=== PATIENT | male | born 1940 | race Two or more races ===

== ENCOUNTER 2023-09-21 10:40 | Outpatient (OUT) | payer MEDICARE, SELFPAY ==
--- NOTE | 2023-09-21 11:51 | PM.PRESUREVA ---
History of Present Illness History of Present Illness Chief complaint: left trigger finger Narrative: Patient presents for preadmission testing accompanied by his . Please see HPI from Dr. Swanson dated 09/19/2023. Review of Systems ROS Narrative Please see ROS from Dr. Swanson dated 09/19/2023. [facility] Medical History (Updated 09/21/23 @ 11:31 by Alaina Norman NP) BPH (benign prostatic hyperplasia) ?N40.0 - Benign prostatic hyperplasia without lower urinary tract symptoms (ICD-10) GERD (gastroesophageal reflux disease) ?K21.9 - Gastro-esophageal reflux disease without esophagitis (ICD-10) Hiccups ?R06.6 - Hiccough (ICD-10) High cholesterol ?E78.00 - Pure hypercholesterolemia, unspecified (ICD-10) Hypertension ?I10 - Essential (primary) hypertension (ICD-10) Postoperative nausea and vomiting ?R11.2 - Nausea with vomiting, unspecified (ICD-10) ?Z98.890 - Other specified postprocedural states (ICD-10) Trigger finger ?M65.30 - Trigger finger, unspecified finger (ICD-10) Surgical History (Updated 09/21/23 @ 11:31 by Alaina Norman NP) History of tonsillectomy ?Z90.89 - Acquired absence of other organs (ICD-10) History of cataract extraction ?Z98.49 - Cataract extraction status, unspecified eye (ICD-10) History of colonoscopy ?Z98.890 - Other specified postprocedural states (ICD-10) History of spinal surgery ?Z98.890 - Other specified postprocedural states (ICD-10) History of hernia repair ?Z98.890 - Other specified postprocedural states (ICD-10) ?Z87.19 - Personal history of other diseases of the digestive system (ICD-10) History of arthroscopy of shoulder ?Z98.890 - Other specified postprocedural states (ICD-10) S/P trigger finger release ?Z98.890 - Other specified postprocedural states (ICD-10) Family History (Updated 09/21/23 @ 11:31 by Alaina Norman NP) Other Family history of heart disease Social History (Updated 09/21/23 @ 11:26 by Alaina Norman NP) Within the past year, how often did you have a drink containing alcohol: monthly or less Smoking status: Former smoker Highest level of school completed/degree received: high school graduate Meds Home Medications and Allergies Home Medications Medication Instructions Recorded Confirmed Type aspirin 81 mg tablet,delayed 81 mg PO DAILY 09/21/23 09/21/23 History release (Adult Aspirin Regimen) dicyclomine 10 mg capsule 10 mg PO DAILY PRN hiccups 09/21/23 09/21/23 History fluticasone propionate 50 2 spray intranasal Q12H 09/21/23 09/21/23 History mcg/actuation nasal spray,suspension latanoprost 0.005 % eye drops 1 drp ophthalmic (eye) DAILY 09/21/23 09/21/23 History lisinopril 20 mg tablet 20 mg PO DAILY 09/21/23 09/21/23 History omeprazole 40 mg capsule,delayed 40 mg PO DAILY 09/21/23 09/21/23 History release pravastatin 40 mg tablet 40 mg PO DAILY 09/21/23 09/21/23 History tamsulosin 0.4 mg capsule 0.4 mg PO DAILY 09/21/23 09/21/23 History timolol maleate 0.25 % eye drops 1 drp ophthalmic (eye) DAILY 09/21/23 09/21/23 History Allergies Allergy/AdvReac Type Severity Reaction Status Date / Time gabapentin Allergy lightheaded Verified 09/21/23 11:23 tramadol Allergy Verified 09/21/23 11:23 Exam Narrative Exam Narrative: Constitutional: Awake, alert, comfortable, well-appearing, nontoxic, interactive, vital signs as charted Head: Normocephalic, atraumatic Neck: Supple, normal appearance, normal range of motion, no meningeal signs, no lymphadenopathy Respiratory: No respiratory distress, breath sounds clear Cardiovascular: Regular rate and rhythm, strong and regular heart tones Neuro: No neurological deficits, normal sensation Psychiatric: Oriented ?3, normal affect Assessment and Plan Assessment and Plan (1) Trigger finger: Plan Left long trigger finger release scheduled with Dr. Swanson 09/25/2023.
== END 2023-09-21 10:41 | disposition home or self-care (01) ==
LOC: PST 10:46
PROVIDERS: Visit Provider Orthopaedic Surgery
DX: Z01.818 Encounter for other preprocedural examination (principal); M65.332 Trigger finger, left middle finger
CPT/HCPCS: G0463

== ENCOUNTER 2023-09-25 11:56 | Day surgery (SDC) | payer MEDICARE, SELFPAY ==
[2023-09-21 11:47] VITALS: BP 135/69; PULSE 60; RESP 14; TEMP 36.2; O2SAT 96; BMI 29.5
[2023-09-25 12:00] VITALS: BP 130/73; PULSE 66; RESP 16; TEMP 36.4; O2SAT 96; BMI 29.6
--- OUTSIDE RECORDS SUMMARY | 2023-09-25 12:00 | XMS_ITS | CCD ---
Author Name Unknown Address [address] [place] [address] Organization [facility] Care Team Providers Care Carding Machine Feeder Name Role Phone Miguel Antonio Primary Care Physician Unavail able Miguel Antonio Unavailable Unavailable Unavailable Primary Care Provider Unavailkemal e AGUILAR, CHANTEL Referring Unavailable AKHIL AWAN Attending Unavailable AKHIL AWAN Admitting Unavailable AKHIL AWAN Attending Unavailable AWANAKHIL ROWE Admitting Unavailable AGUILAR, CHANTEL Referring Unavailable AHKIL AWAN Admitting Unavailable AKHIL AWAN Attending Unavailable Miguel Antonio Primary Care Physician Unavail able Miguel Antonio Unavailable Unavailable Miguel Antonio Primary Care Physician Unavail able Chanell BOARD MIXER TENDER-VESSEL ENGINEER, Nelson Jones Primary Care Provider Jan MONTE, Bee Joseph Attending Unavailable Sobecki WALL MAN, Nelson A Primary Care Unavailable Sobecki WALL MAN, Nelson A Consulting Unavailable Sobecki WALL MAN, Nleson A Primary Care Unavailable Isac Garrett MD Attending Unavail able Ken Cespedes III, MD Attending U navailable Sobecki WALL MAN, Nelson A Primary Care Unavailable Audra Lizarraga PA-C Attending Unav ailable Sobecki WALL MAN, Nelson A Primary Care Unavailable Sobecki WALL MAN, Nelson A Primary Care Unavailable Isac Garrett MD Attending Unavail able Ken Cespedes III, MD Attending U navailable Sobecki WALL MAN, Nelson A Primary Care Unavailable Ken Cespedes III, MD Attending U navailable Sobecki WALL MAN, Nelson A Primary Care Unavailable Sobecki WALL MAN, Nelson A Primary Care Unavailable DeVaul BOARD MIXER TENDER-VESSEL ENGINEER, Matilda Smith Attending Unav ailable Sobecki WALL MAN, Nelson A Referring Unavailable Sobecki WALL MAN, Nelson A Primary Care Unavailable Gerry MONTE, Isac Bales Attending Unavail able Ban SAINI, Miguel Velázquez Attending Unavaila brandyn Cespedes III, MD, Ken Kurtz Referring U navailable Sobecki WALL MAN, Nelson A Primary Care Unavailable Ickes PA-C, Audra Solis Attending Unav ailable Sobecki WALL MAN, Nelson A Primary Care Unavailable Sobecki WALL MAN, Nelson A Primary Care Unavailable DeVaul BOARD MIXER TENDER-VESSEL ENGINEER, Matilda Smith Attending Unav ailable Sobecki WALL MAN, Nelson A Primary Care Unavailable DeVaul BOARD MIXER TENDER-VESSEL ENGINEER, Matilda Smith Attending Unav ailable DeVaul BOARD MIXER TENDER-VESSEL ENGINEER, Matilda Smith Attending Unav ailable Sobecki WALL MAN, Nelson A Primary Care Unavailable Sobecki WALL MAN, Nelson A Primary Care Unavailable DeVaul BOARD MIXER TENDER-VESSEL ENGINEER, Matilda Smith Attending Unav ailable Ickes PA-C, Audra Solis Attending Unav ailable Sobecki WALL MAN, Nelson A Primary Care Unavailable Ickes PA-C, Audra Solis Attending Unav ailable Sobecki WALL MAN, Nelson A Primary Care Unavailable Sobecki WALL MAN, Nelson A Primary Care Unavailable Ickes PA-C, Audra Solis Attending Unav ailable Ickes PA-C, Audra Solis Attending Unav ailable Sobecki WALL MAN, Nelson A Primary Care Unavailable Ickes PA-C, Audra Solis Attending Unav ailable Verhoff PA-C, Therese Perez Referring Unava ilable Sobecki WALL MAN, Nelson A Primary Care Unavailable CATHERINE FIGUEROA Attending Unavailable SOBECKI, NELSON A Referring Unavailable SOBECKI, NELSON A Primary Care Unavailable Allergies Allergy Classification Reported Allergen(s) Allergy Type Date of Onset Reaction(s) Facility (5 sources) gabapentin; Translations: [GABAPENTIN] Drug Allergy 8 Dizziness or Vertigo, Dizziness [facility] (6 sources) traMADol; Translations: [traMADol] Drug Allergy 0 Dizziness or Vertigo, Dizziness [facility] Work Phone: (1 source) gabapentin; Translations: [Neurontin] Drug Allergy [facility] (1 source) tiZANidine; Translations: [Zanaflex] Drug Allergy [facility] Medications Current Medications Medication Drug Class(es) Dates Sig (Normalized) Sig (Original) acetaminophen 500 mg / diphenhydrAMINE hydrochloride 25 mg oral tablet (4 sources) Histamine-1 Receptor Antagonist take 1 tablet by mouth once daily as needed for sleep diphenhydrAMINE- acetaminophen (TYLENOL PM) 25-500 mg tablet Take 1 tablet by mouth nightly as needed for sleep. 0 Active aspirin 81 mg delayed release oral tablet (9 sources) Platelet Aggregation Inhibitor, Nonsteroidal Anti-inflammatory Drug End: 12-03-2021 aspirin 81 mg tablet Adult Aspirin Low Strength 81 MG TBDP 1 tablet daily Refills: 0 Active 0 Active calcium chloride 0.0014 meq/ml / potassium chloride 0.004 meq/ml / sodium chloride 0.103 meq/ml / sodium lactate 0.028 meq/ml injectable solution (2 sources) Start: 12-17-2021 lactated ringers infusion Start: 12-03-2021 lactated ringe rs infusion igrgcci-gshyorpch-iupq 333-133-5 mg tablet (2 sources) calcium-magnesiu m-zinc 333-133-5 mg tablet Calcium/Magnesium/Zinc TABS TAKE 1 TABLET DAILY. Refills: 0 Active 0 Active dicyclomine hydrochloride 10 mg oral capsule (2 sources) Anticholinergic Star t: 07-14 23 take 1 capsule by mouth four times daily before mealtime dicyclomine (BENTYL) 10 mg capsule Take 1 capsule (10 mg total) by mouth 4 (four) times a day before meals and nightly. 0 08/10/2023 Active Flaxseed Oil OIL (2 sources) take 1 capsule by mouth once daily Flaxseed Oil OIL Flaxseed Oil 1200 MG Oral Capsule 1 daily Refills: 0 Active 0 Active flaxseed oil oil (2 sources) take 1 capsule by mouth once daily flaxseed oil oil Flaxseed Oil 1200 MG Oral Capsule 1 daily Refills: 0 Active 0 Active fluticasone propionate 0.05 mg/actuat metered dose nasal spray (10 sources) Corticosteroid Star t: 03-11 23 take 2 spray(s) nasal route in the morning fluticasone propionate (FLONASE) 50 mcg/actuation nasal spray Indications: Chronic sinusitis , Nasal congestion , PND (post-nasal drip) , Throat clearing Administer 2 sprays into each nostril in the morning. 16 g 11 03/21/2023 Active Start: 08-27-2020 fluticasone (F LONASE) 50 MCG/ACT nasal spray USE 2 SQUIRTS IN each nostril every other day. 0 08/27/2020 Active End: 08-11-2017 take 2 spray(s) nasal route once daily fluticasone 50 mcg/actuation nasal spray,suspension 08/11/2017 inhale 2 sprays (100 mcg) in each nostril by intranasal route once daily latanoprost 0.05 mg/ml ophthalmic solution (9 sources) Prostaglandin Analog Start: 09-12-2023 take 1 drop(s) into the eye(s) once daily in the evening latanoprost (XALATAN) 0.005 % ophthalmic solution Indications: Low-tension glaucoma of both eyes, mild stage INSTILL ONE DROP TO BOTH EYE EVERY EVENING 2.5 mL 6 09/12/2023 Active Start: 08-12-2022 End: 09-12-2023 take 1 drop(s) into the eye(s) once daily latanoprost (XALATAN) 0.005 % ophthalmic solution Indications: Low-tension glaucoma of both eyes, mild stage Administer 1 drop to both eyes nightly. 2.5 mL 6 08/12/2022 09/12/2023 Discontinued latanoprost 0.00 5 % ophthalmic (eye) drops lisinopril 20 mg oral tablet (16 sources) Angiotensin Converting Enzyme Inhibitor Start: 11-16-2020 take 1 tablet by mouth once daily in the morning lisinopriL (PRINIVIL,ZESTRIL) 20 mg tablet Indications: Essential hypertension TAKE ONE TABLET BY MOUTH EVERY MORNING 90 tablet 1 07/24/2023 Active End: 03-20-2014 take 1 tablet by mouth once daily lisinopril 5 mg oral tablet 03/20/2014 take 1 tablet by oral route daily omeprazole 40 mg delayed release oral capsule (10 sources) Proton Pump Inhibitor Start: 04-17-2023 take 1 capsule by mouth once daily in the morning omeprazole (PriLOSEC) 40 mg capsule Indications: Gastroesophageal reflux disease without esophagitis TAKE ONE CAPSULE BY MOUTH EVERY MORNING 90 capsule 3 04/17/2023 Active Start: 11-02-2020 take 1 capsule by mo uth once daily omeprazole (PRILOSEC) 40 MG delayed release capsule Take 40 mg by mouth daily 0 11/02/2020 Active take 1 capsule by mo uth once daily before mealtime omeprazole 20 mg oral capsule,delayed release(DR/EC) take 1 capsule (20 mg) by oral route once daily before a meal pravastatin sodium 40 mg oral tablet (10 sources) HMG-CoA Reductase Inhibitor Start: 07-04-2023 take 1 tablet by mouth in the morning pravastatin (PRAVACHOL) 40 mg tablet Indications: Hyperlipidemia, unspecified hyperlipidemia type Take 1 tablet (40 mg total) by mouth in the morning. 90 tablet 3 07/04/2023 Active Start: 06-30-2020 take 1 tablet by jaden th once daily pravastatin (PRAVACHOL) 20 MG tablet Take 20 mg by mouth daily 0 06/30/2020 Active 5 ml sodium chloride 9 mg/ml injection (6 sources) Start: 12-17-2021 0.9 % sodium c hloride infusion Start: 12-17-2021 sodium chlorid e flush 0.9 % injection 5-40 mL Start: 12-03-2021 0.9 % sodium c hloride infusion Start: 12-03-2021 sodium chlorid e flush 0.9 % injection 5-40 mL tamsulosin hydrochloride 0.4 mg oral capsule (10 sources) alpha-Adrenergic Ronda Start: 11-16-2020 take 1 capsule by mouth once daily tamsulosin (FLOMAX) 0.4 mg capsule TAKE ONE CAPSULE BY MOUTH ONCE NIGHTLY 90 capsule 0 07/22/2023 Active timolol 2.5 mg/ml ophthalmic solution (2 sources) beta-Adrenergic Ronda Start: 08-17-2023 take 1 drop(s) into the eye(s) twice daily at bedtime timolol (TIMOPTIC) 0.25 % ophthalmic solution Indications: Low-tension glaucoma of both eyes, mild stage INSTILL ONE DROP TO BOTH EYES TWICE A DAY (MORNING AND BEDTIME) 5 mL 6 08/17/2023 Active UNABLE TO FIND (2 sources) take 120 mg by mouth in the morning UNABLE TO FIND Take 120 mg by mouth in the morning. Gingko biloba for memory. 0 Active Completed/Discontinued Medications Medication Drug Class(es) Dates Sig (Normalized) Sig (Original) acetaminophen 325 mg / HYDROcodone bitartrate 5 mg oral tablet (2 sources) Opioid Agonist Start: 12-03-2021 End: 12-10-2021 take 1 tablet by mouth every six hours as needed for pain HYDROcodone-aceta minophen (NORCO) 5-325 MG per tablet Indications: S/P endoscopic carpal tunnel release Take 1 tablet by mouth every 6 hours as needed for Pain for up to 7 days. 8 tablet 0 12/03/2021 12/10/2021 alendronic acid 70 mg oral tablet (6 sources) Bisphosphonate End: 02-14-2014 take 1 tablet by mouth every week in the morning alendronate 70 mg oral tablet 02/14/2014 take 1 tablet (70 mg) by oral route once weekly in the morning, at least 30 min before first food, beverage, or medication of day allopurinol 100 mg oral tablet (6 sources) Xanthine Oxidase Inhibitor End: 02-14-2014 take 1 tablet by mouth once daily allopurinol 100 mg oral tablet 02/14/2014 take 1 tablet (100 mg) by oral route once daily baclofen 10 mg oral tablet (6 sources) gamma-Aminobutyric Acid-ergic Agonist End: 08-11-2017 take 1 tablet by mouth at bedtime baclofen 10 mg oral tablet 08/11/2017 take 1 tablet (10 mg) by oral route at bedtime zchhpdv-jejizimss-t inc 333-133-5 mg oral tablet (5 sources) Start: 02-14-2014 take 1 tablet by mouth once daily calcium-magnesium -zinc 333-133-5 mg oral tablet 02/14/2014 take 1 tablet by oral route daily Start: 02-14-2014 take 1 tablet by jaden th once daily tmhxjhi-olfzyibzc-tiqd 333-133-5 mg oral tablet 02/14/2014 take 1 tablet by oral route daily xcvwmvd-hplxnmcrb-umfq 333-133-5 mg oral tablet (1 source) Start: 02-14-2014 take 1 tablet by mouth once daily oiqlngd-avvixpflw-jaoi 333-133-5 mg oral tablet 02/14/2014 take 1 tablet by oral route daily ceFAZolin 2000 mg injection (2 sources) Cephalosporin Antibacterial Start: 12-17-2021 End: 12-17-2021 ceFAZolin (ANCEF) 2000 mg in dextrose 3 % 50 mL IVPB (duplex) Start: 12-03-2021 End: 12-03-2021 ceFAZolin (ANCEF) 2000 mg in dextrose 3 % 50 mL IVPB (duplex) desonide 0.5 mg/ml topical lotion (6 sources) Corticosteroid Start: 08-18-2014 End: 08-11-2017 DesOwen 0.05 % topical lotion 08/18/2014 08/11/2017 apply twice weekly as needed to affected armpits/groin diclofenac sodium 15 mg/ml topical solution (6 sources) Nonsteroidal Anti-inflammatory Drug End: 08-11-2017 apply 40 drop(s) topically four times daily Pennsaid 1.5 % topical drops 08/11/2017 apply 40 drops to the right knee by topical route 4 times per day diphenhydrAMINE citrate 38 mg / ibuprofen 200 mg oral tablet (6 sources) Histamine-1 Receptor Antagonist, Nonsteroidal Anti-inflammatory Drug take 2 tablets by mouth once daily in the evening Advil PM 200-38 mg oral tablet take 2 tablets by oral route daily FIBROMYALGIA RELIEF (6 sources) End: 02-25-2020 take 1 capsule by mouth twice daily FIBROMYALGIA RELIEF 02/25/2020 1 CAP BY MOUTH BID take 1 capsule by mouth twice da sae FIBROMYALGIA RELIEF 1 CAP BY MOUTH BID gabapentin 100 mg oral capsule (12 sources) Anti-epileptic Agent End: 08-11-2017 take 1 capsule by mouth three times daily gabapentin 100 mg oral capsule 02/14/2014 take 1 capsule by oral route 3 times a day jayme root 250 mg oral capsule (6 sources) Start: 02-14-2014 End: 08-11-2017 take 1 capsule by mouth twice daily Jayme Extract 250 mg oral capsule 02/14/2014 08/11/2017 take 1 capsule by oral route 2 times a day linseed oil 1000 mg oral capsule (6 sources) Start: 02-14-2014 take 1 capsule by mouth once daily flaxseed oil 1,000 mg oral capsule 02/14/2014 take 1 capsule by oral route daily Miconazole (6 sources) Azole Antifungal End: 08-11-2017 Zeasorb Topical Powder 08/11/2017 use as directed naproxen 500 mg oral tablet (6 sources) Nonsteroidal Anti-inflammatory Drug End: 08-11-2017 take 1 tablet by mouth twice daily at mealtime naproxen 500 mg oral tablet 08/11/2017 take 1 tablet (500 mg) by oral route 2 times per day with food pimecrolimus 10 mg/ml topical cream (1 source) Calcineurin Inhibitor Immunosuppressant Start: 02-22-2023 Elidel 1 % topical cream 02/22/2023 apply BID to affected areas tiZANidine 4 mg oral capsule (6 sources) Central alpha-2 Adrenergic Agonist End: 01-29-2016 take 2 capsules by mouth once daily at bedtime tizanidine 4 mg oral capsule 01/29/2016 take 2 capsules by oral route once a day (at bedtime) triamcinolone acetonide 1 mg/ml topical cream (5 sources) Corticosteroid Start: 02-25-2020 triamcinolone acetonide 0.1 % topical cream 02/25/2020 apply QD to affected areas up to 2 weeks on/one week off prn only. Dispense 80 gm tube Problems Active Problems Problem Classification Problem Date Documented Date Episodic/Chronic Cancer of bronchus; lung (12 sources) Malignant neoplasm of bronchus and lung, unspecified; Translations: [Adenocarcinoma of lung] Chronic Cataract (4 sources) After-cataract of bilateral eyes; Translations: [Other secondary cataract, bilateral] Onset: 09-22-2023 09-21-2023 Chronic Chronic kidney disease (2 sources) Chronic kidney disease stage 3; Translations: [Chronic kidney disease, stage III (moderate)] Onset: 02-23-2017 02-23-2017 Chronic Diverticulosis and diverticulitis (2 sources) Diverticulosis of colon without diverticulitis; Translations: [Diverticulosis of large intestine without perforation or abscess without bleeding] Onset: 06-25-2017 06-25-2017 Chronic Esophageal disorders (2 sources) Gastroesophageal reflux disease; Translations: [Gastro-esophageal reflux disease without esophagitis] Onset: 01-16-2019 01-16-2019 Chronic Essential hypertension (20 sources) Unspecified essential hypertension; Translations: [Hypertensive disorder] Onset: 03-10-2014 02-23-2017 Chronic Glaucoma (3 sources) Bilateral low tension glaucoma of eyes; Translations: [Low-tension glaucoma, bilateral, mild stage] Onset: 09-22-2023 09-06-2023 Chronic Hyperplasia of prostate (2 sources) Nocturia due to benign prostatic hypertrophy; Translations: [Benign prostatic hyperplasia with lower urinary tract symptoms] Onset: 08-10-2017 11-30-2017 Chronic Melanomas of skin (12 sources) Malignant melanoma of skin; Translations: [Malignant melanoma of skin] Onset: 09-11-2009 Chronic Osteoarthritis (4 sources) Osteoarthritis of right knee joint; Translations: [Unilateral primary osteoarthritis, right knee] Onset: 07-04-2019 07-04-2019 Chronic Other connective tissue disease (6 sources) Fibromyositis; Translations: [Myalgia and myositis, unspecified] Episodic Other connective tissue disease (4 sources) Fibromyalgia Episodic Other inflammatory condition of skin (6 sources) Seborrheic dermatitis; Translations: [Seborrheic dermatitis, unspecified] Episodic Other inflammatory condition of skin (6 sources) Itching of skin; Translations: [Unspecified pruritic disorder] Episodic Other inflammatory condition of skin (4 sources) Pruritus, unspecified Episodic Other inflammatory condition of skin (5 sources) Seborrheic dermatitis, unspecified Onset: 02-22-2023 Episodic Other nervous system disorders (6 sources) Facial palsy; Translations: [Bradshaw's palsy] Episodic Other nervous system disorders (4 sources) Bradshaw's palsy Episodic Other nervous system disorders (1 source) Other acute postprocedural pain; Translations: [Other acute postprocedural pain] Onset: 08-12-2022 Episodic Other non-epithelial cancer of skin (20 sources) Personal history of other malignant neoplasm of skin; Translations: [Personal history of other malignant neoplasm of skin] Onset: 02-14-2014 Episodic Other skin disorders (6 sources) Actinic keratosis; Translations: [Actinic keratosis] Episodic Other skin disorders (1 source) Sebaceous cyst Onset: 02-25-2020 Episodic Other skin disorders (20 sources) Actinic keratosis Onset: 01-29-2016 Episodic Retinal detachments; defects; vascular occlusion; and retinopathy (2 sources) Epiretinal membrane of right eye; Translations: [Puckering of macula, right eye] Onset: 09-22-2023 09-22-2023 Chronic Spondylosis; intervertebral disc disorders; other back problems (8 sources) Degeneration of cervical intervertebral disc; Translations: [Other cervical disc degeneration, unspecified cervical region] Onset: 07-10-2017 07-10-2017 Chronic Unclassified (1 source) Blurred Vision Onset: 09-22-2023 Past or Other Problems Problem Classification Problem Date Documented Da te Episodic/Chronic Allergic reactions (18 sources) Contact dermatitis and other eczema, unspecified cause; Translations: [Dermatitis, unspecified] Onset: 02-25-2020 Episodic Coagulation and hemorrhagic disorders (2 sources) Platelet count below reference range; Translations: [Thrombocytopenia, unspecified] Onset: 02-23-2017 Resolved: 08-19-2019 08-19-2019 Chronic Conditions associated with dizziness or vertigo (6 sources) Dizziness and giddiness Onset: 03-20-2014 Episodic Disorders of lipid metabolism (20 sources) Other and unspecified hyperlipidemia; Translations: [Hyperlipidemia] Onset: 03-20-2014 Resolved: 07-07-2017 07-07-2017 Chronic Fever of unknown origin (3 sources) Fever with chills Onset: 03-20-2014 Episodic Genitourinary symptoms and ill-defined conditions (2 sources) Disorder of the urinary system; Translations: [Disorder of urinary system, unspecified] Onset: 11-26-2020 05-05-2022 Episodic Melanomas of skin (20 sources) Personal history of malignant melanoma of skin; Translations: [Personal history of malignant melanoma of skin] Onset: 02-14-2014 Episodic Mood disorders (2 sources) Mood disorders Onset: 08-17-2023 08-17-2023 Neoplasms of unspecified nature or uncertain behavior (20 sources) Neoplasm of uncertain behavior of skin; Translations: [Neoplasm of uncertain behavior of skin] Onset: 02-08-2017 Episodic Other aftercare (2 sources) Encounter for removal of sutures Onset: 08-18-2017 Episodic Other aftercare (4 sources) Encounter for removal of sutures Onset: 08-18-2017 Episodic Other and unspecified benign neoplasm (2 sources) Polyp of cecum; Translations: [Polyp of colon] Onset: 06-25-2017 06-25-2017 Episodic Other and unspecified benign neoplasm (2 sources) Tubular adenoma ; Translations: [Benign neoplasm, unspecified site] Onset: 06-25-2017 06-25-2017 Episodic Other connective tissue disease (8 sources) Myalgia and myositis, unspecified Onset: 03-20-2014 Episodic Other connective tissue disease (2 sources) Primary fibromyalgia syndrome; Translations: [Fibromyalgia] Onset: 07-07-2017 07-07-2017 Episodic Other diseases of kidney and ureters (2 sources) Cyst of kidney; Translations: [Cyst of kidney, acquired] Onset: 08-30-2017 08-30-2017 Episodic Other ear and sense organ disorders (2 sources) Bilateral tinnitus; Translations: [Tinnitus, bilateral] Onset: 01-31-2018 01-31-2018 Episodic Other inflammatory condition of skin (14 sources) Unspecified pruritic disorder Onset: 03-20-2014 Episodic Other inflammatory condition of skin (8 sources) Seborrheic dermatitis, unspecified Onset: 03-20-2014 Episodic Other inflammatory condition of skin (1 source) Seborrheic dermatitis, unspecified Other lower respiratory disease (2 sources) Rib pain; Translations: [Pleurodynia] Onset: 08-01-2017 08-01-2017 Episodic Other lower respiratory disease (2 sources) Cough; Translations: [Cough] Onset: 07-07-2017 Resolved: 06-22-2021 06-22-2021 Episodic Other male genital disorders (2 sources) Hemospermia; Translations: [Hematospermia] Onset: 11-26-2020 12-24-2020 Episodic Other nervous system disorders (8 sources) Bradshaw's palsy Onset: 03-20-2014 Episodic Other screening for suspected conditions (not mental disorders or infectious disease) (2 sources) Patient encounter status; Translations: [Encounter for screening for malignant neoplasm of prostate] Onset: 07-07-2017 07-07-2017 Episodic Other skin disorders (8 sources) Other seborrheic keratosis Onset: 01-28-2015 Episodic Other skin disorders (20 sources) Actinic keratosis Onset: 02-14-2014 Episodic Other skin disorders (12 sources) Inflamed seborrheic keratosis Onset: 02-14-2014 Episodic Other skin disorders (6 sources) Epidermal cyst Onset: 02-25-2020 Episodic Other skin disorders (8 sources) Other seborrheic keratosis Onset: 07-31-2015 Episodic Residual codes; unclassified (2 sources) Congestion of throat; Translations: [Other general symptoms and signs] Onset: 07-10-2017 07-10-2017 Episodic Spondylosis; intervertebral disc disorders; other back problems (6 sources) Spinal stenosis of lumbar region; Translations: [Spinal stenosis, lumbar region without neurogenic claudication] Onset: 11-25-2016 05-16-2023 Episodic Syncope (20 sources) Syncope and collapse; Translations: [Syncope] Onset: 03-10-2014 Episodic Unclassified (9 sources) Malignant melanoma of skin; Translations: [Other and unspecified malignant neoplasm of skin] Onset: 03-20-2014 Unclassified (2 sources) Onset: 08-19-2019 08-19-2019 Results Test Name Value Interpretation Reference Range Facility .eGFRon 09-21-2023 Estimated GFR 37 mL/min/1.73m? Low >=60 [facility] Comment on above: Result Comment: [facility] Laboratories have implemented the eGFR calculation approach that does not have a coefficient for race and that conforms to the NKF-ASN Task Force Recommendations. Stages of Chronic Kidney Disease GFR Stage 3a Mild to moderate loss of kidney function 59 to 45 Stage 3b Moderate to severe loss of kidney function 44 to 33 Stage 4 Severe loss of kidney function 29 to 15 Stage 5 Kidney failure Less than 15 GFR calculated using the CKD-Epi Creatinine Equation (2020): eGFR = 142 X min(SCr/?, 1)? X max(SCr /?, 1)-1.200 X 0.9938Age X 1.012 [if female] Abbreviations/Units: eGFR (estimated glomerular filtration rate) = mL/min/1.73 m2 SCr (standardized serum creatinine) = mg/dL ? = 0.7 (females) or 0.9 (males) ? = -0.241 (females) or -0.302 (males) min = indicates the minimum of SCr/? or 1 max = indicates the maximum of SCr/? or 1 Age = years Performed By: #### E GFR ####[address] [id number] CBC w/ Diffon 09-21-2023 Erythrocyte distribution width (RBC) [Ratio] 12.9 % Normal 11.6-14.8 [facility] Comment on above: Performed By: #### C BC #### [facility] [address] [place] [id number] Hematocrit (Bld) [Volume fraction] 42.8 % Normal 41.0-53.0 [facility] Comment on above: Performed By: #### C BC #### [address] [address] Hemoglobin (Bld) [Mass/Vol] 14.5 g/dL Normal 13.5-17.5 [facility] Comment on above: Performed By: #### C BC #### [address] [address] MCH (RBC) [Entitic mass] 29.6 pg Normal 27.0-35.0 [facility] Comment on above: Performed By: #### C BC #### [address] [address] MCHC 33.8 % Normal 31.0-37.0 [facility] Comment on above: Performed By: #### C BC #### [address] [address] MCV (RBC) [Entitic vol] 87.5 fL Normal 80.0-100.0 [facility] [facility] Comment on above: Performed By: #### C BC #### [address] [address] Platelet 160 x10*3/mcL Normal 150-450 [facility] Comment on above: Performed By: #### C BC #### [address] [address] Platelet mean volume (Bld) [Entitic vol] 10.3 fL Normal 6.7-10.6 [facility] Comment on above: Performed By: #### C BC #### [address] [address] RBC 4.89 x10*6/mcL Normal 4.30-5.80 [facility] Comment on above: Performed By: #### C BC #### [address] [address] WBC 7.5 x10*3/mcL Normal 4.5-11.0 [facility] Comment on above: Performed By: #### C BC #### [address] [address] CMPon 09-21-2023 Albumin [Mass/Vol] 4.1 g/dL Normal 3.2-4.9 [facility] Comment on above: Performed By: #### C OMP ####[address] [address] Albumin/Globulin [Mass ratio] 1.3 {ratio} Normal 1.1-2.2 [facility] Comment on above: Performed By: #### C OMP ####[address] [address] Alk Phos 77 IU/L Normal 32-91 [facility] Comment on above: Performed By: #### C OMP ####[address] [address] ALT [Catalytic activity/Vol] 15 U/L Low 17-63 [facility] Comment on above: Performed By: #### C OMP ####[address] [address] Anion gap [Moles/Vol] 12 mmol/L Normal 7-17 [facility] Comment on above: Performed By: #### C OMP ####[address] [address] AST [Catalytic activity/Vol] 24 U/L Normal 15-41 [facility] Comment on above: Performed By: #### C OMP ####[address] [address] Bili Total 0.7 mg/dL Normal 0.3-1.2 [facility] Comment on above: Performed By: #### C OMP ####[address] [address] Calcium [Mass/Vol] 9.7 mg/dL Normal 8.5-10.3 [facility] Comment on above: Performed By: #### C OMP ####[address] [address] Chloride [Moles/Vol] 107 mmol/L Normal 98-110 [facility] Comment on above: Performed By: #### C OMP ####[address] [address] CO2 [Moles/Vol] 27 mmol/L Normal 22-32 [facility] Comment on above: Performed By: #### C OMP ####[address] [address] Creatinine [Mass/Vol] 1.76 mg/dL High 0.61-1.24 [facility] Comment on above: Performed By: #### C OMP ####[address] [address] Glucose [Mass/Vol] 104 mg/dL High 70-99 [facility] Comment on above: Performed By: #### C OMP ####[address] [address] Potassium [Moles/Vol] 4.4 mmol/L Normal 3.4-4.8 [facility] Comment on above: Performed By: #### C OMP ####[address] [address] Protein [Mass/Vol] 7.3 g/dL Normal 6.5-8.1 [facility] Comment on above: Performed By: #### C OMP ####[address] [address] Sodium [Moles/Vol] 142 mmol/L Normal 133-142 [facility] Comment on above: Performed By: #### C OMP ####[address] [address] Urea nitrogen [Mass/Vol] 21 mg/dL Normal 8-26 [facility] Comment on above: Performed By: #### C OMP ####[address] [address] Urea nitrogen/Creatinine [Mass ratio] 11.9 mg/mg Normal 10.0-20.0 [facility] Comment on above: Performed By: #### C OMP ####[address] [address] Diff Autoon 09-21-2023 Baso Absolute 0.0 x10*3/mcL Normal 0.0-0.2 [facility] Comment on above: Performed By: #### . Automated Diff ####[address] [address] Basophils/100 WBC (Bld) 0.6 % Normal 0.0-1.2 [facility] Comment on above: Performed By: #### . Automated Diff ####[address] [address] Eos Absolute 0.6 x10*3/mcL High 0.0-0.4 [facility] Comment on above: Performed By: #### . Automated Diff ####[address] [address] Eosinophils/100 WBC (Bld) 7.3 % High 0.0-6.1 [facility] Comment on above: Performed By: #### . Automated Diff ####[address] [address] Lymph Absolute 1.5 x10*3/mcL Normal 1.0-4.[address] [facility] Comment on above: Performed By: #### . Automated Diff ####[address] [address] Lymphocytes/100 WBC (Bld) 19.7 % Low 27.2-40.8 [facility] Comment on above: Performed By: #### . Automated Diff ####[address] [address] [place] Absolute 0.6 x10*3/mcL Normal 0.3-1.1 [facility] Comment on above: Performed By: #### . Automated Diff ####[address] [address] Monocytes/100 WBC (Bld) 8.2 % Normal 4.7-13.9 [facility] Comment on above: Performed By: #### . Automated Diff ####[address] [address] Neutro Absolute 4.8 x10*3/mcL Normal 1.8-7.7 [facility] Comment on above: Performed By: #### . Automated Diff ####[address] [address] Neutro Auto 64.2 % Normal 47.2-70.8 [facility] Comment on above: Performed By: #### . Automated Diff ####[id number] [place] [address] Neurosurgery Office/Clinic N annmarie 2023 Neurosurgery Office/Clinic Note Chief Complaint back post op History of Present Illness Patient is a pleasant 83 year-old male with a history of hypertension, fibromyalgia, BPH, osteopenia (DEXA 04/2023), remote history of melanoma in situ status post excision in 2007 and 2009, coexisting right knee arthropathy (following with orthopedics: Dr. Garrett), and remote lumbar laminectomy performed in approximately [address] at [facility], who presents to the outpatient neurosurgical clinic today accompanied by his , for continued post operative follow up. Patient is status post uncomplicated right L3-4 unilateral laminotomy for bilateral decompression performed 07/24/[address] Cespedes secondary to advanced central stenosis at L3-4 with resultant right greater than left lower extremity radiculopathy/neurogenic claudication. Patient has done well overall postoperatively with significant improvement in his pre-operative pain syndrome. Since time of last office visit, he has completed a course of post operative physical therapy without difficulty. Today, patient reports he is pleased with his progress and denies significant complaints. He notes generally mild intermittent lumbar aching, but denies significant lumbar pain. He denies gluteal pain or radicular pain into the lower extremities. He denies numbness or paresthesias in the lower extremity. Patient denies motor weakness in the lower extremities and states he is ambulating without difficulty or assistive device requirement. He denies bowel/bladder incontinence or saddle paresthesias. Patient denies incisional problems or incisional drainage. He denies headaches. He denies fevers, chills, nausea, or vomiting. Patient states his appetite and energy level are good. He is no longer requiring narcotic support. Physical Exam Vitals & Measurements HR: 63 (Peripheral) BP: 128/60 SpO2: 96 HT: 178 cm WT: 94.8 kg WT: 94.8 kg (Dosing) BMI: 29.92 Additional Vitals BP Position/Location: Sitting, Left arm General: [Alert and oriented, well nourished, no acute distress]. Eye: [normal conjunctiva, no scleral icterus]. HENT: [normocephalic, atraumatic, oral mucosa pink and moist, dentition intact]. Neck: [Supple]. Pulmonary: [non-labored respiration]. Cardiovascular: [no edema, strong pulses with rapid capillary refill]. Skin: [Normal temperature and texture; no rashes; no digit clubbing or cyanosis]. Psychiatric: [Appropriate judgment and insight, appropriate mood and affect]. On exam in the office, patient is seated comfortably in a chair and is non painful/non-ill appearing. Incision is well-healed without surrounding erythema, edema, induration, or tenderness to palpation; good approximation of the incision borders without drainage or dehiscence. The thoracolumbar spine is without deformities. No significant myospasms. Thoracolumbar spine is nontender to palpation. Bilateral sacroiliac regions are nontender to palpation. Mild restriction in range of motion without increase in pain with range of motion. No lumbar neurotension signs with negative straight leg raise, reverse straight leg raise, and femoral stretch test bilaterally. Bilateral hips are nontender to palpation with negative hip pointer signs. Bilateral calves are without swelling, erythema, warmth, or tenderness to palpation. No palpable cord and negative Homans' sign bilaterally. Muscle strength is 5 out of 5 and equal bilateral lower extremities. DTRs are 2/4 and equal bilateral lower extremities. No myelopathic features are noted. Gait is normal without significant antalgia and with full ability to toe and heel walk with the assistance of the examiner for balance. Assessment/Plan 1. S/P lumbar spine operation 2. Lumbar radiculopathy 3. Degenerative disc disease, lumbar 4. Lumbar stenosis At this time, patient is approximately 8 weeks postop from uncomplicated right L3-4 unilateral laminotomy for bilateral decompression. He has done well postoperatively with significant improvement in his preoperative pain syndrome and is pleased with his outcome/status. His incision has healed well without suggestion of infectious complications and since time of last office visit, he has completed a course of post operative physical therapy without difficulty. He denies significant complaints today. That said, given patient's excellent clinical status, it is felt reasonable for him to be released to ease into a moderate geriatric adult lifestyle. He is encouraged to avoid lifting/pushing/pulling greater than 30 to 35 pounds and to avoid extreme physically demanding activities. Patient will be released to follow-up in our clinic on an as-needed basis, but is encouraged to call with any changes, problems, or concerns. Patient states understanding and is in agreement with the above-stated plan. He is highly appreciative for his care. Patient's case is discussed with Dr. Cespedes who is in agreement with the above-stated plan. Time Spent with the Patient I have personally spent 24 minutes on this date, directly r (more content not included)... [facility] Provider Letteron 2023 Provider Letter (Inserted Image. Mckenzie ble to display) Nelson Lua NP [address] [place] [id number] Re: Vinayak Vizcarra Date of Visit: 2023 Dear Nelson Lua, Thank you for allowing me to contribute to the care of your patient, Vinayak Vizcarra. Attached is my office note and you will find my assessment and recommendations from our encounter today. Please do not hesitate to contact me with any questions or concerns. Sincerely, Audra Lizarraga PA-C [facility] [place] [address] The following document(s) were included in the letter: 2023 08:50:44 EST - (2023) Neurosurgery Office Visit Note [facility] Neurosurgery Office/Clinic N oteon 08-15-2023 Neurosurgery Office/Clinic Note Chief Complaint 3 week post op unilateral laminotomy bilat History of Present Illness Patient is a pleasant 82-year-old male with a history of hypertension, fibromyalgia, BPH, osteopenia (DEXA 04/2023), remote history of melanoma in situ status post excision in 2007 and 2009, coexisting right knee arthropathy (following with orthopedics: Dr. Garrett), and remote lumbar laminectomy performed in approximately [address] [facility], who presents to the outpatient neurosurgical clinic today accompanied by his , for continued post operative follow up. Patient is status post uncomplicated right L3-4 unilateral laminotomy for bilateral decompression performed 07/24/[address] Cespedes secondary to advanced central stenosis at L3-4 with resultant right greater than left lower extremity radiculopathy/neurogenic claudication. Patient has done well overall postoperatively with significant improvement in his pre-operative pain syndrome. Today, patient reports he is pleased with his progress and denies significant complaints. He notes generally mild intermittent lumbar aching, but denies significant lumbar pain. He denies gluteal pain or radicular pain into the lower extremities. He denies numbness or paresthesias in the lower extremity. Patient denies motor weakness in the lower extremities and states he is ambulating without difficulty or assistive device requirement. He denies bowel/bladder incontinence or saddle paresthesias. Patient denies incisional problems or incisional drainage. He denies headaches. He denies fevers, chills, nausea, or vomiting. Patient states his appetite and energy level are good. He is no longer requiring narcotic support. Physical Exam Vitals & Measurements HR: 70 (Peripheral) BP: 132/62 SpO2: 98 HT: 178 cm WT: 94.1 kg WT: 94.1 kg (Dosing) BMI: 29.7 Additional Vitals BP Position/Location: Sitting, Right arm General: [Alert and oriented, well nourished, no acute distress]. Eye: [normal conjunctiva, no scleral icterus]. HENT: [normocephalic, atraumatic, oral mucosa pink and moist, dentition intact]. Neck: [Supple]. Pulmonary: [non-labored respiration]. Cardiovascular: [no edema, strong pulses with rapid capillary refill]. Skin: [Normal temperature and texture; no rashes; no digit clubbing or cyanosis]. Psychiatric: [Appropriate judgment and insight, appropriate mood and affect]. On exam in the office, patient is seated comfortably in a chair and is non painful/non-ill appearing. Incision is well-healed without surrounding erythema, edema, induration, or tenderness to palpation; good approximation of the incision borders without drainage or dehiscence. The thoracolumbar spine is without deformities. No significant myospasms. Thoracolumbar spine is nontender to palpation. Bilateral sacroiliac regions are nontender to palpation. Mild restriction in range of motion without increase in pain with range of motion. No lumbar neurotension signs with negative straight leg raise, reverse straight leg raise, and femoral stretch test bilaterally. Bilateral hips are nontender to palpation with negative hip pointer signs. Bilateral calves are without swelling, erythema, warmth, or tenderness to palpation. No palpable cord and negative Homans' sign bilaterally. Muscle strength is 5 out of 5 and equal bilateral lower extremities. DTRs are 2/4 and equal bilateral lower extremities. No myelopathic features are noted. Gait is normal without significant antalgia and with full ability to toe and heel walk with the assistance of the examiner for balance. Assessment/Plan 1. S/P lumbar spine operation Ordered: Referral to Physical Therapy 2. Degenerative disc disease, lumbar Ordered: Referral to Physical Therapy 3. Lumbar stenosis Ordered: Referral to Physical Therapy 4. Lumbar radiculopathy Ordered: Referral to Physical Therapy Orders: External Referral At this time, patient is approximately 3 weeks postop from uncomplicated right L3-4 unilateral laminotomy for bilateral decompression. He has done well postoperatively with significant improvement in his preoperative pain syndrome and is pleased with his progress. His incision has healed well without suggestion of infectious complications and he denies significant complaints today. That said, it is felt reasonable to progress patient in his postoperative course. He will be released to drive and lift up to 10 to 15 pounds. He is encouraged to continue to ambulate, but is not to participate in any heavier physical activity than walking. Patient is reeducated on incision care. He is educated he may continue to shower, but is not to submerge his incision in water such as pools, hot tubs, or bathtubs for at least 8 weeks postoperatively. Patient will be referred to initiate a course of postoperative physical therapy. He will plan to follow-up in our clinic in 4 to 6 weeks for reevaluation. He is to call sooner with any changes, problems, or concerns. Patient states understanding and is in agreement with (more content not included)... [facility] Provider Letteron 08-15-2023 Provider Letter (Inserted Image. Mckenzie ble to display) Nelson Lua NP [address] [place] [id number] Re: Vinayak Vizcarra Date of Visit: 08/15/2023 Dear Nelson Lua, Thank you for allowing me to contribute to the care of your patient, Vinayak Vizcarra. Attached is my office note and you will find my assessment and recommendations from our encounter today. Please do not hesitate to contact me with any questions or concerns. Sincerely, Audra Lizarraga PA-C Neurosurgical [address] [address] The following document(s) were included in the letter: August 15, 2023 13:44:15 EST - (08/15/2023) Neurosurgery Office Visit Note [facility] Gastroenterology Office/Clin ic Noteon 08-10-2023 Gastroenterology Office/Clinic Note Chief Complaint 6M Hiccups/Gerd. Pt states when he was taking bentyl it helped wiith the burping but he is out of it and now the burping is back History of Present Illness Patient presents to GI clinic for follow-up of GERD, belching, tubular adenoma and history of hiccups. States dicyclomine worked well however he ran out of the prescription a couple weeks ago. States the hiccups are not back however the belching is. Remains on low-dose PPI. Denies hematochezia, melena or hematemesis. egd 10/19/2022 Impression and Plan EGD: Diagnosis: Gastric erythema ([id number] K31.9, Discharge, Medical), Gastric polyp ([id number] K31.7, Discharge, Medical), Irregular Z line of esophagus ([id number] K22.9, Discharge, Medical). Orders: Pathology reports to be followed. Continue PPI Avoid NSAIDs. Lifestyle modifications including HOB elevation, allowing at least 1-3 hours after eating before lying down, avoiding alcohol and avoiding smoking. Return to GI clinic per schedule. cy 10/19/2022 Impression and Plan Colonoscopy: Diagnosis: Colon polyps ([id number] K63.5, Discharge, Medical), Diverticula, colon ([id number] K57.30, Discharge, Medical), Internal hemorrhoids ([id number] K64.8, Discharge, Medical). Orders: Pathology reports to be followed. High fiber diet, adequate PO hydration Return to GI clinic per schedule.. Education and Follow-up: Counseled: Patient, Family. Recommended repeat colonoscopy: Await pathology results. pathology 10/19/2022 Part A: Gastric polyp, biopsy:Fundic gland polyps. Part B: Gastric erythematous area, biopsy:Essentially unremarkable gastric mucosa. Part C: Irregular z line, biopsy:Benign, reactive squamous mucosa.Inflamed glandular mucosa negative for intestinal metaplasia. Part D: Cecal polyp, biopsy:Fragments of tubular adenoma. Part E: Descending colon polyp, biopsy:Mixed tubular adenoma and hyperplastic polyp. Part F: Transverse colon polyp, biopsy:Fragments of tubular adenoma. last CY done 2016, tubular adenoma, done with DY, see scanned in documents. CTAP done 08/2022: no intraabdominal findings PCP: [facility] Constitutional: No fevers, chills, sweats Eye: No recent visual problems ENMT: No ear pain, nasal congestion, sore throat Respiratory: No shortness of breath, cough Cardiovascular: No Chest pain, palpitations, syncope Gastrointestinal: SEE HPI Genitourinary: No hematuria, no urgency/frequency Lymph: Negative for bruising tendency, swollen lymph glands Endocrine: Negative for excessive thirst, excessive hunger Musculoskeletal: No back pain, neck pain, joint pain, muscle pain, decreased range of motion Integumentary: No rash, pruritus, abrasions Neurologic: Alert & oriented X [address], place, time and situation Psychiatric: No anxiety, depression Physical Exam Vitals & Measurements HR: 76 (Peripheral) SpO2: 99 HT: 178 cm WT: 94.2 kg BMI: 29.73 General: Alert and oriented, well nourished, no acute distress. Eye: PERRL, EOMI, normal conjunctiva. HENT: Normocephalic, clear tympanic membranes, normal hearing, moist oral mucosa, no scleral icterus, no sinus tenderness Neck: Supple, non-tender, no carotid bruits, no JVD, no lymphadenopathy. Lungs: Clear to auscultation and percussion, non-labored respiration. Heart: Normal rate, regular rhythm, no murmur, gallop or edema. Abdomen: Soft, non-tender, non-distended, normal bowel sounds, no masses. Musculoskeletal: Normal range of motion and strength, no tenderness or swelling. Skin: Skin is warm, dry and pink, no rashes or lesions. Neurologic: Awake, alert, and oriented X3 Psychiatric: Cooperative, appropriate mood and affect. Additional Vitals No qualifying data available. Assessment/Plan Orders: dicyclomine, 1 caps, Oral, QID, # 28 caps, 1 Refill(s), Pharmacy: [facility] [id number] 1. Hiccups, GERD - on PPI, trial of dicyclomine did resolve hiccups, cont prn rx sent - EGD/CY stable - advise adequate water intake - enc. weight loss, avoid supine position for 3 hours after meals - avoid foods that decrease LES pressure, avoid overeating, avoid alcohol, nsaid, nicotine use. 2. Tubular adenoma - repeat CY in 3 years pending clinical picture given advanced age Medical Decision Making Chronic conditions NOT treated during this visit that affected my overall medical decision making: [] Treatment plans discussed but not opted for at this time: [] Prescribed medication that requires intensive monitoring for toxicity: [] I have reviewed the patient?s medication list for medication interactions/contraindicat ions and/or for upcoming procedures: [yes or no] Time Spent with the Patient I have personally spent [31] minutes on this date, directly related to today's patient visit, including pre and post visit work, for this date of service. Time listed does not include time spent on separately billable services. Physician Comments f/u yearly Problem List/Past Medical History [place] (more content not included)... [facility] Neurosurgery Office/Clinic N oteon 07-27-2023 Neurosurgery Office/Clinic Note Chief Complaint post op incision check History of Present Illness Patient is a pleasant 82-year-old male with a history of hypertension, fibromyalgia, BPH, osteopenia (DEXA 04/2023), remote history of melanoma in situ status post excision in 2007 and 2009, coexisting right knee arthropathy (following with orthopedics: Dr. Garrett), and remote lumbar laminectomy performed in approximately [address] [facility], who presents to the outpatient neurosurgical clinic today accompanied by his , for postoperative incision check. Patient is status post uncomplicated right L3-4 unilateral laminotomy for bilateral decompression performed 07/24/[address] Cespedes secondary to advanced central stenosis at L3-4 with resultant right greater than left lower extremity radiculopathy/neurogenic claudication. Patient has done well overall postoperatively. He did contact our office on postop day 1 voicing concerns that his surgical dressing was saturated with blood product. Ultimately, his concern resulted in evaluation through [facility] and he is now seen in our office for a postoperative incision check. Today, patient voices that although he saturated 2 surgical dressings initially, since the dressing has been changed by the [facility] 07/25/2023, he has very minimal incisional bleeding. He has not required dressing change since the ER approximately 48 hours ago. Patient states that otherwise, he has been doing well. He denies headaches. He denies fevers, chills, nausea, or vomiting. Patient states his appetite and energy level are good. He does note some persistent right gluteal pain radiating into the right anterior thigh that is likely a result of chemical radiculitis secondary to postoperative hematoma. He notes components of lumbar myospasms with generally mild axial lumbar pain without significant/intractable lumbar pain. He denies left gluteal pain or radicular pain into the left lower extremity. He denies numbness or paresthesias in the lower extremity. Patient denies motor weakness in the lower extremities and states he is ambulating without difficulty or assistive device requirement. He denies bowel/bladder incontinence or saddle paresthesias. Patient states he is requiring narcotics generally only at bedtime. Physical Exam Vitals & Measurements HR: 73 (Peripheral) BP: 138/64 SpO2: 96 HT: 178 cm WT: 93.9 kg WT: 93.9 kg (Dosing) BMI: 29.64 Additional Vitals BP Position/Location: Sitting, Right arm General: [Alert and oriented, well nourished, no acute distress]. Eye: [normal conjunctiva, no scleral icterus]. HENT: [normocephalic, atraumatic, oral mucosa pink and moist, dentition intact]. Neck: [Supple]. Pulmonary: [non-labored respiration]. Cardiovascular: [no edema, strong pulses with rapid capillary refill]. Skin: [Normal temperature and texture; no rashes; no digit clubbing or cyanosis]. Psychiatric: [Appropriate judgment and insight, appropriate mood and affect]. On exam in the office, patient is seated comfortably in a chair and is non painful/non-ill appearing. Current surgical dressing is intact with a mild amount of old blood product. Upon removal of dressing, Steri-Strips are intact but saturated with old blood product. Incision is with good approximation of the incision borders without surrounding erythema, edema, induration, or tenderness to palpation. No drainage or dehiscence; no active bleeding even with palpation. The thoracolumbar spine is without deformities. No significant myospasms. Thoracolumbar spine is nontender to palpation. Bilateral sacroiliac regions are nontender to palpation. Mild restriction in range of motion with increase in pain with range of motion. No lumbar neurotension signs with negative straight leg raise, reverse straight leg raise, and femoral stretch test bilaterally. Bilateral hips are nontender to palpation with negative hip pointer signs. Lateral calves are without swelling, erythema, warmth, or tenderness to palpation. No palpable cord and negative Homans' sign bilaterally. Muscle strength is 5 out of 5 and equal bilateral lower extremities. DTRs are 2/4 and equal bilateral lower extremities. No myelopathic features are noted. Gait is normal without significant antalgia and with full ability to toe and heel walk with the assistance of the examiner for balance. Assessment/Plan 1. S/P lumbar spine operation Ordered: methylPREDNISolone, 1 packets, Oral, As Indicated, as directed on package labeling; take with food, X 6 days, # 21 tabs, 0 Refill(s), 08/02/23 11:12:00 EST, Pharmacy: [facility] [id number] 2. Lumbar stenosis Ordered: methylPREDNISolone, 1 packets, Oral, As Indicated, as directed on package labeling; take with food, X 6 days, # 21 tabs, 0 Refill(s), 08/02/23 11:12:00 EST, Pharmacy: [facility] [id number] 3. Degenerative disc disease, lumbar Ordered: methylPREDNISolone, 1 packets, Oral, As Indicated, as directed on package labeling; take with food, X 6 days, # 21 tabs, 0 Refill(s), 08/02/23 11:12:00 (more content not included)... [facility] Provider Letteron 07-27-2023 Provider Letter (Inserted Image. Mckenzie ble to display) Nelson Lua NP [address] [place] [phone] Re: Vinayak Vizcarra Date of Visit: 07/27/2023 Dear Nelson Lua, Thank you for allowing me to contribute to the care of your patient, Vinayak Vizcarra. Attached is my office note and you will find my assessment and recommendations from our encounter today. Please do not hesitate to contact me with any questions or concerns. Sincerely, Audra Lizarraga PA-C [facility] [address] [address] The following document(s) were included in the letter: July 27, 2023 10:26:11 EST - (07/27/2023) Neurosurgery Office Visit Note [facility] Operative Reporton 3 Operative Report Indication for Surge ry Severe spinal stenosis L3-4 with intractable claudication and radiculopathy right greater than left Preoperative Diagnosis SEVERE SPINAL STENOSIS, NEUROGENIC CLAUDICATION, LUMBAR RADICULOPATHY Postoperative Diagnosis Same Operation Right unilateral laminotomy for bilateral decompression L3-4 Surgeon(s) Coy MENJIVAR MD, Ken Kurtz (Surgeon - Primary) Lead Loader Yeny Vela PA-C (Facilities Maintenance Supervisor) Anesthesia General Yolanda Vinson MD, Chapin Palma (Vp Treasurer) Sandra Ventura (Provider) Estimated Blood Loss 25.0 mL Urine Output N/A Findings Stable SSEP and EMG monitoring clinical osteopenia Specimen(s) None-grossly normal posterior elements Complications None Technique History: Pleasant 82-year-old gentleman with a history of hypertension, fibromyalgia and benign prostatic hypertrophy who has a previous history of lumbar surgery at 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 The patient has no motor neuropathy but has symptoms that have recurred only a few weeks after epidural steroid injection. He is strongly interested in definitive intervention. His imaging does reveal no evidence of instability but severe spinal stenosis and particularly lateral recess stenosis at L3-4. He is made aware of the opportunity for right L3-4 unilateral laminotomy for bilateral decompression. He is made aware of the rationale of the procedure and conservative alternatives as well as the recovery interval and its conduct as an outpatient. He is also made aware of the risk of procedure including the risk of procedure including infection, bleeding, CSF leak, neurologic injury, neuropathic pain syndrome, peridural fibrosis, failure for improvement, incomplete benefit, new neurologic deficit, spinal instability, coma, , paralysis, deep venous thrombosis, pulmonary embolism as well as recurrent disc herniation and reoperation, either delayed or acute. It is particular highlighted the possibility of incomplete benefit, new neurologic deficit, spinal instability or requirement for revision surgery at a later date. He acknowledges and wishes to proceed and does not believe he requires a second opinion although this is offered This surgeon personally met with the patient performed directed history, physical, review of imaging and full surgical consent-patient is grateful and all questions answered to her satisfaction Procedure: Patient is brought into the operating room and general anesthetic is induced through a medical placed endotracheal tube. Venous access is secured and patient is carefully turned onto a [employer] operating room table with a Isaías frame and placed in the prone position. Head and neck are placed in neutral position and arms are placed on arm boards with neurovascular bundles unencumbered. Lumbar region is cleaned with alcohol and dried and excess hair removed with clippers. Midline is identified and 18-gauge spinal needles were placed adjacent to levels of interest and fluoroscopy is confirmatory and a proposed skin incision is described in the midline straddling the disc spaces of L3-4 which is incorporated into a incision for surgery conducted by [facility] in 195. The area is prepped and draped in usual fashion. The patient received IV antibiotics. After the appropriate side, site, patient are identified and timeout maneuver is performed, full-thickness skin incision is carried down to the thoracolumbar fascia using 10 blade knife and monopolar cautery. Fascia is incised using cutting current monopolar cautery. in a subperiosteal fashion, the paravertebral muscles were elevated off the spinous process, lamina and facets of L3-4, right side. Fluoroscopy is confirmatory for levels after self-retaining retractors put in place at L3-4. High-speed electric drill is used to flatten the lateral projection of the tip of the spinous process of L3 and L4 in order to allow visualization across midline followed by performance of a generous laminotomy including undercutting of the base of the spinous process of L3 including a medial facetectomy involving the medial third of the inferior articular process of L3. This allows for identification of the ligamentum flavum which is detached from the superior leading edge of the L4 lamina, right side. This allows for laminotomy from midline laterally to the pedicle of L4 followed using 2.5 and 3 mm Kerrison punches. The lamina is removed flush to the medial aspect of the pedicle of L4 and then exposed medial superior articular process undergoes medial facetectomy cephalad to effect a decompression of the lateral recess right L3-4. Ligamentum flavum is removed in its entirety using 3 mm Kerrison punch to the superior insertion of the ligamentum flavum on the undersurface of the L3 lamina, right side. The disc space is explored and found not to be in necessity of a discectomy and on (more content not included)... [facility] Provider Letteron 07-24-2023 Provider Letter (Inserted Image. Mckenzie ble to display) Nelson Lua NP [address] [place] [phone] Re: Vinayak Vizcarra Date of Visit: 07/24/2023 Dear Nelson Lua NP, Let me know if you have any questions or concerns. Sincerely, TIARA Miner MD Providers: The following document(s) were included in the letter: July 24, 2023 10:23:01 EST - (07/24/2023) Neurosurgery operative note [facility] XR Spine Lumbosacral 1 View in ORon 07-24-2023 XR Spine Lumbosacral 1 View in OR Intraoperative fluoroscopic images of the lumbar spine on 07/24/2023 Findings: Single limited intraoperative fluoroscopic image obtained during lumbar spine surgery done by Dr. Cespedes . Total fluoro time for this procedure is 3 seconds. This dictation is for documentation only. Please refer to the OR report for details. Final Dictated by: Matthew Chaudhry MD Dictated DT/TM: 07/24/2023 4:25 pm Signed by: Matthew Chaudhry MD Signed (Electronic Signature): 07/24/2023 4:25 pm (If Report Is Signed, Electronically Signed in Other Vendor System) [facility] Provider Letteron 07-17-2023 Provider Letter Nelson Rice [address] [place] [phone] Re: Vinayak Vizcarra Date of Visit: 07/14/2023 Dear Nelson Lua WALL MAN, Please see attached results on this mutual patient you have with [facility] Result Name Current Result Reference Range UA Source Clean Catch 07/14/2023 UA Glucose (mg/dL) Normal 07/14/2023 Negative - UA Clarity Clear 07/14/2023 UA Protein (mg/dL) Negative 07/14/2023 Negative - UA Bili Negative 07/14/2023 Negative - UA Urobilinogen (mg/dL) Normal 07/14/2023 0.2 - 1.0 - UA pH 7.0 07/14/2023 4.5 - 7.8 - UA Blood Negative 07/14/2023 Negative - UA Ketones (mg/dL) Negative 07/14/2023 Negative - UA Nitrite Negative 07/14/2023 Negative - UA Leukocyte Esterase Negative 07/14/2023 Negative - UA Spec Grav 1.007 07/14/2023 1.003 - 1.035 UA Color Colorless 07/14/2023 UA RBC Quant (/HPF) 0 07/14/2023 0 - 5 UA WBC Quant (/HPF) 0 07/14/2023 0 - 5 UA Mucus (/LPF) Present 07/14/2023 Absent - Neutro Auto (%) 66.0 07/14/2023 47.2 - 70.8 Lymph Auto (%) 20.1 ((L)) 07/14/2023 27.2 - 40.8 [place] Auto (%) 7.5 07/14/2023 4.7 - 13.9 Eos Auto (%) 5.8 07/14/2023 0.0 - 6.1 Basophil Auto (%) 0.6 07/14/2023 0.0 - 1.2 Neutro Absolute (x10 Lymph Absolute (x10 [place] Absolute (x10 Eos Absolute (x10 Baso Absolute (x10 WBC (x10 RBC (x10 Hgb (g/dL) 14.9 07/14/2023 13.5 - 17.5 Hct (%) 43.5 07/14/2023 41.0 - 53.0 MCV (fL) 86.0 07/14/2023 80.0 - 100.0 MCH (pg) 29.3 07/14/2023 27.0 - 35.0 MCHC (%) 34.1 07/14/2023 31.0 - 37.0 Platelet (x10 RDW (%) 13.2 07/14/2023 11.6 - 14.8 Mean Platelet Volume (fL) 10.5 07/14/2023 6.7 - 10.6 PTT (seconds) 25.9 07/14/2023 20.6 - 29.2 PT (seconds) 10.3 07/14/2023 9.3 - 11.9 INR (ratio) 1.0 07/14/2023 - <=3.5 Sodium Lvl (mmol/L) 143 ((H)) 07/14/2023 133 - 142 Potassium Lvl (mmol/L) 4.6 07/14/2023 3.4 - 4.8 Chloride (mmol/L) 108 07/14/2023 98 - 110 CO2 (mmol/L) 30 07/14/2023 22 - 32 Glucose Lvl (mg/dL) 90 07/14/2023 70 - 99 BUN (mg/dL) 25 07/14/2023 8 - 26 Creatinine Lvl (mg/dL) 1.73 ((H)) 07/14/2023 0.61 - 1.24 Bili Total (mg/dL) 0.5 07/14/2023 0.3 - 1.2 Alk Phos (IU/L) 69 07/14/2023 32 - 91 AST (IU/L) 25 07/14/2023 15 - 41 ALT (IU/L) 17 07/14/2023 17 - 63 Total Protein (g/dL) 7.5 07/14/2023 6.5 - 8.1 Albumin Lvl (g/dL) 4.3 07/14/2023 3.2 - 4.9 Calcium Lvl (mg/dL) 9.8 07/14/2023 8.5 - 10.3 Anion Gap 10 07/14/2023 7 - 17 AG Ratio 1.3 07/14/2023 1.1 - 2.2 BUN Crea Ratio 14.5 07/14/2023 10.0 - 20.0 Estimated GFR (mL/min/1.73m?) 38 ((L)) 07/14/2023 >=60 - Hgb A1c (% A1c) 5.8 ((H)) 07/14/2023 4.0 - 5.6 eAvg Glucose (mg/dL) 120 ((H)) 07/14/2023 68 - 114 Let me know if you have any questions or concerns. Sincerely, Micaela Viramontes [facility] Clinical Lead Health Econometrician C C Providers: [facility] .UA Microscp Aon 07-14-2023 UA Mucus Present Normal Absent [facility] Comment on above: Performed By: #### P TT #### [facility] [address] [place] [address] UA RBC Quant 0 /HPF Normal 0-5 [facility] Comment on above: Performed By: #### P TT #### [facility] [address] [place] [address] UA WBC Quant 0 /HPF Normal 0-5 [facility] Comment on above: Performed By: #### P TT #### [address] [address] .eGFRon 07-14-2023 Estimated GFR 38 mL/min/1.73m? Low >=60 [facility] Comment on above: Result Comment: [facility] Laboratories have implemented the eGFR calculation approach that does not have a coefficient for race and that conforms to the NKF-ASN Task Force Recommendations. Stages of Chronic Kidney Disease GFR Stage 3a Mild to moderate loss of kidney function 59 to 45 Stage 3b Moderate to severe loss of kidney function 44 to 33 Stage 4 Severe loss of kidney function 29 to 15 Stage 5 Kidney failure Less than 15 GFR calculated using the CKD-Epi Creatinine Equation (2020): eGFR = 142 X min(SCr/?, 1)? X max(SCr /?, 1)-1.200 X 0.9938Age X 1.012 [if female] Abbreviations/Units: eGFR (estimated glomerular filtration rate) = mL/min/1.73 m2 SCr (standardized serum creatinine) = mg/dL ? = 0.7 (females) or 0.9 (males) ? = -0.241 (females) or -0.302 (males) min = indicates the minimum of SCr/? or 1 max = indicates the maximum of SCr/? or 1 Age = years Performed By: #### P TT #### [address] [address] ABO/Rhon 07-14-2023 ABO/Rh SD 11.13.23 ABO/Rh: AB POS [facility] Comment on above: Performed By: #### P TT #### [address] [address] ABSC Autoon 07-14-2023 ABSC Auto Negative [facility] Comment on above: Performed By: #### P TT #### [address] [address] CBC w/ Diffon 07-14-2023 Erythrocyte distribution width (RBC) [Ratio] 13.2 % Normal 11.6-14.8 [facility] Comment on above: Performed By: #### C BC ####[place] [id number] Hematocrit (Bld) [Volume fraction] 43.5 % Normal 41.0-53.0 [facility] Comment on above: Performed By: #### C BC ####[place] [id number] Hemoglobin (Bld) [Mass/Vol] 14.9 g/dL Normal 13.5-17.5 [facility] Comment on above: Performed By: #### C BC ####[place] [id number] MCH (RBC) [Entitic mass] 29.3 pg Normal 27.0-35.0 [facility] Comment on above: Performed By: #### C BC ####[place] [address] MCHC 34.1 % Normal 31.0-37.0 [facility] Comment on above: Performed By: #### C BC ####[place] [id number] MCV (RBC) [Entitic vol] 86.0 fL Normal 80.0-100.0 [facility] Comment on above: Performed By: #### C BC ####[place] [id number] Platelet 152 x10*3/mcL Normal 150-450 [facility] Comment on above: Performed By: #### C BC ####[address] [address] Platelet mean volume (Bld) [Entitic vol] 10.5 fL Normal 6.7-10.6 [facility] Comment on above: Performed By: #### C BC ####[facility] [place] [address] RBC 5.07 x10*6/mcL Normal 4.30-5.80 [facility] Comment on above: Performed By: #### C BC ####[place] [address] [place] [address] WBC 7.2 x10*3/mcL Normal 4.5-11.0 [facility] Comment on above: Performed By: #### C BC ####[address] [address] CMPon 07-14-2023 Albumin [Mass/Vol] 4.3 g/dL Normal 3.2-4.9 [facility] Comment on above: Performed By: #### P TT #### [address] [address] Albumin/Globulin [Mass ratio] 1.3 {ratio} Normal 1.1-2.2 [facility] Comment on above: Performed By: #### P TT #### [address] [address] Alk Phos 69 IU/L Normal 32-91 [facility] Comment on above: Performed By: #### P TT #### [address] [address] ALT [Catalytic activity/Vol] 17 U/L Normal 17-63 [facility] Comment on above: Performed By: #### P TT #### [address] [place] [address] Anion gap [Moles/Vol] 10 mmol/L Normal 7-17 [facility] Comment on above: Performed By: #### P TT #### [address] [address] AST [Catalytic activity/Vol] 25 U/L Normal 15-41 [facility] Comment on above: Performed By: #### P TT #### [address] [address] Bili Total 0.5 mg/dL Normal 0.3-1.2 [facility] Comment on above: Performed By: #### P TT #### [address] [address] Calcium [Mass/Vol] 9.8 mg/dL Normal 8.5-10.3 [facility] Comment on above: Performed By: #### P TT #### [address] [place] [address] Chloride [Moles/Vol] 108 mmol/L Normal 98-110 [facility] Comment on above: Performed By: #### P TT #### [address] [address] CO2 [Moles/Vol] 30 mmol/L Normal 22-32 [facility] Comment on above: Performed By: #### P TT #### [address] [address] Creatinine [Mass/Vol] 1.73 mg/dL High 0.61-1.24 [facility] Comment on above: Performed By: #### P TT #### [address] [place] [address] Glucose [Mass/Vol] 90 mg/dL Normal 70-99 [facility] Comment on above: Performed By: #### P TT #### [address] [address] Potassium [Moles/Vol] 4.6 mmol/L Normal 3.4-4.8 [facility] Comment on above: Performed By: #### P TT #### [address] [place] [address] Protein [Mass/Vol] 7.5 g/dL Normal 6.5-8.1 [facility] Comment on above: Performed By: #### P TT #### [address] [place] [address] Sodium [Moles/Vol] 143 mmol/L High 133-142 [facility] Comment on above: Performed By: #### P TT #### [address] [address] Urea nitrogen [Mass/Vol] 25 mg/dL Normal 8-26 [facility] Comment on above: Performed By: #### P TT #### [address] [address] Urea nitrogen/Creatinine [Mass ratio] 14.5 mg/mg Normal 10.0-20.0 [facility] Comment on above: Performed By: #### P TT #### [address] [address] Diff Autoon 07-14-2023 Baso Absolute 0.0 x10*3/mcL Normal 0.0-0.2 [facility] Comment on above: Performed By: #### . Automated Diff ####[address] [address] Basophils/100 WBC (Bld) 0.6 % Normal 0.0-1.2 [facility] Comment on above: Performed By: #### . Automated Diff ####[address] [address] Eos Absolute 0.4 x10*3/mcL Normal 0.0-0.4 [facility] Comment on above: Performed By: #### . Automated Diff ####[address] [address] Eosinophils/100 WBC (Bld) 5.8 % Normal 0.0-6.1 [facility] Comment on above: Performed By: #### . Automated Diff ####[address] [address] Lymph Absolute 1.4 x10*3/mcL Normal 1.0-4.[address] [facility] Comment on above: Performed By: #### . Automated Diff ####[address] [address] Lymphocytes/100 WBC (Bld) 20.1 % Low 27.2-40.8 [facility] Comment on above: Performed By: #### . Automated Diff ####[address] [address] [place] Absolute 0.5 x10*3/mcL Normal 0.3-1.1 [facility] Comment on above: Performed By: #### . Automated Diff ####[address] [address] Monocytes/100 WBC (Bld) 7.5 % Normal 4.7-13.9 [facility] Comment on above: Performed By: #### . Automated Diff ####[address] [address] Neutro Absolute 4.8 x10*3/mcL Normal 1.8-7.7 [facility] Comment on above: Performed By: #### . Automated Diff ####[address] [address] Neutro Auto 66.0 % Normal 47.2-70.8 [facility] Comment on above: Performed By: #### . Automated Diff ####[address] [address] HbA1c w/Rflx Fructosamineon 07-14-2023 Glucose [Mass/Vol] 120 mg/dL High 68-114 [facility] Comment on above: Result Comment: Math ematical Calc approx. The mean gluc equivalency of A1c Performed By: #### C [id number] ####[address] [address] Hgb A1c 5.8 % A1c High 4.0-5.6 [facility] Comment on above: Result Comment: Refe rence Range: 4.0 - 5.6 % Normal 5.7 - 6.4 % Pre-Diabetes > 6.5 % Diabetes Performed By: #### C [id number] ####[address] [address] PTon 07-14-2023 INR Coag (PPP) [Relative time] 1.0 {INR} Normal <=3.5 [facility] Comment on above: Result Comment: INR has no normal range. INR Therapeutic range is: 2.0-3.0 (AF, CVA, TIAs, DVT prophylaxis, acute DVT) 2.5-3.5 ([facility] heart valves, recurrent thrombosis/emboli) Performed By: #### P TT #### [address] [address] PT Coag (PPP) [Time] 10.3 s Normal 9.3-11.9 [facility] Comment on above: Performed By: #### P TT #### [address] [address] PTTon 07-14-2023 aPTT Coag (Bld) [Time] 25.9 s Normal 20.6-29.2 [facility] Comment on above: Performed By: #### P TT #### [address] [address] UA w Culture if Indon 2022 Color (U) Colorless Normal [facility] Comment on above: Performed By: #### U CI ####[address] [address] Ketones Ql (U) Negative Normal Negative [facility] Comment on above: Performed By: #### U CI ####[address] [address] UA Blood Negative Normal Negative [facility] Comment on above: Performed By: #### U CI ####[address] [address] UA Clarity Clear Normal [facility] Comment on above: Performed By: #### U CI ####[address] [address] UA Glucose Normal Normal Negative [facility] Comment on above: Performed By: #### U CI ####[address] [address] UA Leukocyte Esterase Negative Normal Negative [facility] Comment on above: Performed By: #### U CI ####[address] [address] UA Nitrite Negative Normal Negative [facility] Comment on above: Performed By: #### U CI ####[address] [address] UA pH 7.0 Normal 4.5 - 7.8 [facility] Comment on above: Performed By: #### U CI ####[address] [address] UA Protein Negative Normal Negative [facility] Comment on above: Performed By: #### U CI ####[address] [address] UA Source Clean Catch Normal [facility] Comment on above: Performed By: #### U CI ####[place] [id number] UA Spec Grav 1.007 Normal 1.003-1.035 [facility] Comment on above: Performed By: #### U CI ####[address] [address] UA Urobilinogen Normal Normal 0.2 - 1.0 [facility] Comment on above: Performed By: #### U CI ####[place] [id number] Urobilinogen (U) [Mass/Vol] Negative Normal Negative [facility] Comment on above: Performed By: #### U CI ####[place] [id number] Neurosurgery Office/Clinic Michael anguiano 07-04-2023 Neurosurgery Office/Clinic Note Chief Complaint Back follow up Physical Exam Vitals & Measurements HR: 72 (Peripheral) BP: 143/72 HT: 178 cm WT: 92.5 kg WT: 92.5 kg (Dosing) BMI: 29.19 Additional Vitals BP Position/Location: Sitting, Right arm Assessment/Plan 1. Lumbar stenosis 2. Lumbar radiculopathy 3. Degenerative disc disease, lumbar 4. Spondylolisthesis Pleasant 82-year-old gentleman with a history of hypertension, fibromyalgia and benign prostatic hypertrophy who has a previous history of lumbar surgery at 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 The patient has no motor neuropathy but has symptoms that have recurred only a few weeks after epidural steroid injection. He is strongly interested in definitive intervention. His imaging does reveal no evidence of instability but severe spinal stenosis and particularly lateral recess stenosis at L3-4. He is made aware of the opportunity for right L3-4 unilateral laminotomy for bilateral decompression. He is made aware of the rationale of the procedure and conservative alternatives as well as the recovery interval and its conduct as an outpatient. He is also made aware of the risk of procedure including the risk of procedure including infection, bleeding, CSF leak, neurologic injury, neuropathic pain syndrome, peridural fibrosis, failure for improvement, incomplete benefit, new neurologic deficit, spinal instability, coma, , paralysis, deep venous thrombosis, pulmonary embolism as well as recurrent disc herniation and reoperation, either delayed or acute. It is particular highlighted the possibility of incomplete benefit, new neurologic deficit, spinal instability or requirement for revision surgery at a later date. He acknowledges and wishes to proceed and does not believe he requires a second opinion although this is offered This surgeon personally met with the patient performed directed history, physical, review of imaging and full surgical consent-patient is grateful and all questions answered to her satisfaction Medical Decision Making Chronic conditions NOT treated during this visit that affected my overall medical decision making: [] Treatment plans discussed but not opted for at this time: [] Prescribed medication that requires intensive monitoring for toxicity: [] I have reviewed the patient?s medication list for medication interactions/contraindicat ions and/or for upcoming procedures: [yes or no] Time Spent with the Patient I have personally spent [] minutes on this date, directly related to today's patient visit, including pre and post visit work, for this date of service. Time listed does not include time spent on separately billable services. Problem List/Past Medical History Ongoing Acid reflux Ankylosis of spine Basal cell carcinoma BPH - benign prostatic hyperplasia Colon polyp: adenomatous and hyperplastic (2011) Colon polyp: tubular adenoma (2016) Degenerative disc disease, lumbar Diverticular disease Double vision Enlarged prostate Fibromyalgia Heartburn Hernia Hiatal hernia Hypertension Lumbar radiculopathy Lumbar stenosis Numbness of hands Osteoarthritis Osteopenia Spondylolisthesis Vertigo Historical Melanoma in situ (2009) Procedure/Surgical History EGD Excision of basal cell carcinoma and melanoma in situ (2007, 2009) Lumbar laminectomy (1956) ORIF left leg (1968) Bilateral cataract extraction (1990) Rt Shoulder surgery (1994) TURP (1996) Rt Shoulder Surgery (2001) Rt Knee Arthroscopy (2002) TURP (2005) prostate reduction (2010) Wire removed from left foot (2010) left shoulder surgery (06/17/2016) Lumbar/Sacral Nerve Root Injection (Right) (07/13/2016) Colonoscopy (06/14/2017) Colonoscopy Polypectomy (10/19/2022) Esophagogastroduodenoscopy Polypectomy (10/19/2022) Medications Advil PM, 1 tabs, Oral, HS (at bedtime), PRN aspirin 81 mg oral tablet, 81 mg= 1 tabs, Oral, Daily Bentyl 10 mg oral capsule, 10 mg= 1 caps, Oral, QID, PRN Calcium, Magnesium and Zinc oral tablet, 1 tabs, Oral, Daily dicyclomine 10 mg oral capsule, 10 mg= 1 caps, Oral, BID, 1 refills Flax Seed Oil, 1 tabs, Oral, Daily fluticasone 50 mcg/inh nasal spray gabapentin 100 mg oral capsule, 1 caps, Oral, TID latanoprost 0.005% ophthalmic solution, 1 drops, Eye-Both, HS (at bedtime) lisinopril 20 mg oral tablet, 20 mg= 1 tabs, Oral, Daily Misc Medication omeprazole 20 mg oral delayed release tablet, 20 mg= 1 tabs, Oral, Daily pravastatin 20 mg oral tablet, 20 mg= 1 tabs, Oral, Daily tamsulosin 0.4 mg oral capsule, 0.4 mg= 1 caps, Oral, Daily timolol maleate 0.25% ophthalmic solution Allergies traMADol (Lightheadedness) Neurontin (dizziness) Zanaflex (Dizziness) Social History Alcohol Never Substance Abuse Denies All Tobacco Former smoker, quit more than 5 years ago Use:. Cigarettes, Packs, 60 year(s). Never Smokeless (more content not included)... [facility] Neurosurgery Office/Clinic Note Chief Complaint Back follow up History of Present Illness Patient is a pleasant 82-year-old male with a history of hypertension, fibromyalgia, BPH, osteopenia (DEXA 04/2023), remote history of melanoma in situ status post excision in 2007 and 2009, coexisting right knee arthropathy (following with orthopedics: Dr. Garrett), and remote lumbar laminectomy performed in approximately [address] [facility], who presents to the outpatient neurosurgical clinic today for follow up on behalf of complaints of chronic pain throughout the right superior lumbar region, right gluteal region, and right lower extremity. Patient reports a greater than 5-year history of symptoms with progressive worsening such that symptoms have been most problematic in the past 12 months. He describes pain throughout the right superior lumbosacral region and right superior gluteal region. He states pain is constant to some degree, but that he is much more comfortable when seated at rest with predictable aggravation in symptoms with standing/walking. Patient states pain is generally improved with lying supine. He denies radicular pain into the right lower extremity, but does note cramping throughout the right anterior thigh. Patient denies significant axial lumbar pain. He denies left gluteal pain or left lower extremity radicular pain. He denies numbness or paresthesias in the lower extremities outside of chronic numbness in the right foot that he attributes to a previous right knee injection. Patient denies motor weakness in the lower extremities, but does report a sense of heaviness throughout the lower extremities with ambulation. Patient denies bowel/bladder incontinence or saddle paresthesias. He denies significant cervical or thoracic pain. He denies radicular pain into the upper extremities or chest wall/thorax. Patient denies numbness or paresthesias in the upper extremities or chest wall/thorax. He denies motor weakness in the upper extremities, decreased dexterity, or chronic gait imbalance. 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 He states pain generally does not interrupt sleep, but does interrupt activity level. He states he is typically not significantly limited in his ability to ambulate and that function is not typically interrupted. He states he can easily ride a stationary bicycle without difficulty. Patient states pain has been refractory to ongoing attempts at long term care phlebotomist and oral medication management. In addition, he has worked extensively with pain management for several years and attempted many injection modalities. In the past 12 months, he underwent a right L3-4 and L4-5 RFA's 06/2022, a right SI injection 11/18/2022, and a caudal epidural injection 12/30/2022 all without significant benefit. Most recently, patient underwent L3-4 HUEY 05/26/2023 following which patient estimates an overall initial 75% improvement for a transient period with early return of symptoms. Review of Systems Constitutional: [No fevers, chills, sweats] Eye: [No recent visual problems] ENT: [No ear pain, sore throat, nasal congestion] Respiratory: [No shortness of breath, cough] Vascular: [No edema, erythema, discoloration] Cardiovascular: [No Chest pain, palpitations, syncope] Neuro: [No headaches, dizziness] Gastrointestinal: [No nausea, vomiting, diarrhea] Genitourinary: [No hematuria] Endocrine: [no polydipsia, polyphagia] Hematology: [no easy bruising, no bleeding tendencies] Physical Exam Vitals & Measurements HR: 72 (Peripheral) BP: 143/72 HT: 178 cm WT: 92.5 kg WT: 92.5 kg (Dosing) BMI: 29.19 Additional Vitals BP Position/Location: Sitting, Right arm General: [Alert and oriented, well nourished, no acute distress]. Eye: [normal conjunctiva, no scleral icterus]. HENT: [normocephalic, atraumatic, oral mucosa pink and moist, dentition intact]. Neck: [Supple]. Pulmonary: [non-labored respiration]. Cardiovascular: [no edema, strong pulses with rapid capillary refill]. Skin: [Normal temperature and texture; no rashes; no digit clubbing or cyanosis]. Psychiatric: [Appropriate judgment a (more content not included)... [facility] Provider Letteron 07-04-2023 Provider Letter (Inserted Image. Mckenzie ble to display) Nelson Lua NP [address] [place] [phone] Re: Vinayak Vizcarra Date of Visit: 07/04/2023 Dear Nelson Lua, Thank you for allowing me to contribute to the care of your patient, Vinayak Vizcarra. Attached is my office note and you will find my assessment and recommendations from our encounter today. Please do not hesitate to contact me with any questions or concerns. Sincerely, Audra Lizarraga PA-C [facility] [place] [address] The following document(s) were included in the letter: July 04, 2023 09:59:04 EDT - (07/04/2023) Neurosurgery Office Visit Note [facility] Provider Letter (Inserted Image. Mckenzie ble to display) Nelson Lua NP [address] [place] [phone] Re: Vinayak Vizcarra Date of Visit: 07/04/2023 Dear Nelson Lua NP, Let me know if you have any questions or concerns. Sincerely, TIARA Miner MD Providers: The following document(s) were included in the letter: July 04, 2023 13:47:17 EDT - (07/04/2023) Neurosurgery Office Visit Note [facility] Neurosurgery Office/Clinic N oteon 05-30-2023 Neurosurgery Office/Clinic Note Chief Complaint back follow up History of Present Illness Patient is a pleasant 82-year-old male with a history of hypertension, fibromyalgia, BPH, osteopenia (DEXA 04/2023), remote history of melanoma in situ status post excision in 2007 and 2009, coexisting right knee arthropathy (following with orthopedics: Dr. Garrett), and remote lumbar laminectomy performed in approximately [address] [facility], who presents to the outpatient neurosurgical clinic today for follow up and imaging review on behalf of complaints of chronic pain throughout the right superior lumbar region, right gluteal region, and right lower extremity. Patient reports a greater than 5-year history of symptoms with progressive worsening such that symptoms have been most problematic in the past 12 months. He describes pain throughout the right superior lumbosacral region and right superior gluteal region. He states pain is constant to some degree, but that he is much more comfortable when seated at rest with predictable aggravation in symptoms with standing/walking. Patient states pain is generally improved with lying supine. He denies radicular pain into the right lower extremity, but does note cramping throughout the right anterior thigh. Patient denies significant axial lumbar pain. He denies left gluteal pain or left lower extremity radicular pain. He denies numbness or paresthesias in the lower extremities outside of chronic numbness in the right foot that he attributes to a previous right knee injection. Patient denies motor weakness in the lower extremities, but does report a sense of heaviness throughout the lower extremities with ambulation. Patient denies bowel/bladder incontinence or saddle paresthesias. He denies significant cervical or thoracic pain. He denies radicular pain into the upper extremities or chest wall/thorax. Patient denies numbness or paresthesias in the upper extremities or chest wall/thorax. He denies motor weakness in the upper extremities, decreased dexterity, or chronic gait imbalance. 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 He states pain generally does not interrupt sleep, but does interrupt activity level. He states he is typically not significantly limited in his ability to ambulate and that function is not typically interrupted. Patient states pain has been refractory to ongoing attempts at long term care phlebotomist and oral medication management. In addition, he has worked extensively with pain management for several years and attempted many injection modalities. Most recently, he underwent a right L3-4 and L4-5 RFA's 06/2022, a right SI injection 11/18/2022, and a caudal epidural injection 12/30/2022 all without significant benefit. Time of last office visit, patient underwent L3-4 HUEY 05/26/2023 of which it is yet somewhat early to gauge for benefit, but following which patient currently estimates an overall 50 to 60% improvement. Physical Exam Vitals & Measurements HR: 62 (Peripheral) BP: 138/64 SpO2: 97 HT: 178 cm WT: 91.8 kg WT: 91.8 kg (Dosing) BMI: 28.97 Additional Vitals BP Position/Location: Sitting, Right arm General: [Alert and oriented, well nourished, no acute distress]. Eye: [normal conjunctiva, no scleral icterus]. HENT: [normocephalic, atraumatic, oral mucosa pink and moist, dentition intact]. Neck: [Supple]. Pulmonary: [non-labored respiration]. Cardiovascular: [no edema, strong pulses with rapid capillary refill]. Skin: [Normal temperature and texture; no rashes; no digit clubbing or cyanosis]. Psychiatric: [Appropriate judgment and insight, appropriate mood and affect]. On exam in the office, patient is seated comfortably in a chair and is non painful appearing. Previous lumbar incision is well-healed without surrounding erythema, edema, induration, or tenderness to palpation. The thoracolumbar spine is without deformities. No significant myospasms. Thoracolumbar spine is nontender to palpation and percussion. Bilateral sacroiliac regions are nontender to palpation. Mild restriction in range of motion with increase in pain with range of motion. No lumbar neurotension signs with negative straight leg raise, reverse straight leg (more content not included)... [facility] Provider Letteron 05-30-2023 Provider Letter (Inserted Image. Mckenzie ble to display) Nelson Lua NP [address] [place] [phone] Re: Vinayak Vizcarra Date of Visit: 05/30/2023 Dear Nelson Lua, Thank you for allowing me to contribute to the care of your patient, Vinayak Vizcarra. Attached is my office note and you will find my assessment and recommendations from our encounter today. Please do not hesitate to contact me with any questions or concerns. Sincerely, Audra Lizarraga PA-C [facility] [address] [address] The following document(s) were included in the letter: May 30, 2023 09:05:09 EDT - (05/30/2023) Neurosurgery Office Visit Note [facility] Neurosurgery Office/Clinic N oteon 04-24-2023 Neurosurgery Office/Clinic Note Chief Complaint back History of Present Illness Patient is a pleasant 82-year-old male with a history of hypertension, fibromyalgia, BPH, osteopenia, remote history of melanoma in situ status post excision in 2007 and 2009, coexisting right knee arthropathy (following with orthopedics: Dr. Garrett), and remote lumbar laminectomy performed in approximately [address] [facility], who presents to the outpatient neurosurgical clinic today for follow up and imaging review on behalf of complaints of chronic pain throughout the right superior lumbar region, right gluteal region, and right lower extremity. Patient reports a greater than 5-year history of symptoms with progressive worsening such that symptoms have been most problematic in the past 12 months. He describes pain throughout the right superior lumbosacral region and right superior gluteal region. He states pain is constant to some degree, but that he is much more comfortable when seated at rest with predictable aggravation in symptoms with standing/walking. Patient states pain is generally improved with lying supine. He denies radicular pain into the right lower extremity, but does note cramping throughout the right anterior thigh. Patient denies significant axial lumbar pain. He denies left gluteal pain or left lower extremity radicular pain. He denies numbness or paresthesias in the lower extremities outside of chronic numbness in the right foot that he attributes to a previous right knee injection. Patient denies motor weakness in the lower extremities, but does report a sense of heaviness throughout the lower extremities with ambulation. Patient denies bowel/bladder incontinence or saddle paresthesias. He denies significant cervical or thoracic pain. He denies radicular pain into the upper extremities or chest wall/thorax. Patient denies numbness or paresthesias in the upper extremities or chest wall/thorax. He denies motor weakness in the upper extremities, decreased dexterity, or chronic gait imbalance. 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 He states pain generally does not interrupt sleep, but does interrupt activity level. He states he is typically not significantly limited in his ability to ambulate and that function is not typically interrupted. Patient states pain has been refractory to ongoing attempts at long term care phlebotomist and oral medication management. In addition, he has worked extensively with pain management for several years and attempted many injection modalities. Most recently, he underwent a right L3-4 and L4-5 RFA's 06/2022, a right SI injection 11/18/2022, and a caudal epidural injection 12/30/2022 all without significant benefit. Physical Exam Vitals & Measurements HR: 65 (Peripheral) BP: 129/69 HT: 178 cm WT: 91.2 kg WT: 91.2 kg (Dosing) BMI: 28.78 Additional Vitals BP Position/Location: Sitting, Right arm General: [Alert and oriented, well nourished, no acute distress]. Eye: [normal conjunctiva, no scleral icterus]. HENT: [normocephalic, atraumatic, oral mucosa pink and moist, dentition intact]. Neck: [Supple]. Pulmonary: [non-labored respiration]. Cardiovascular: [no edema, strong pulses with rapid capillary refill]. Skin: [Normal temperature and texture; no rashes; no digit clubbing or cyanosis]. Psychiatric: [Appropriate judgment and insight, appropriate mood and affect]. On exam in the office, patient is seated comfortably in a chair and is non painful appearing. Previous lumbar incision is well-healed without surrounding erythema, edema, induration, or tenderness to palpation. The thoracolumbar spine is without deformities. No significant myospasms. Thoracolumbar spine is nontender to palpation and percussion. Bilateral sacroiliac regions are nontender to palpation. Mild restriction in range of motion with increase in pain with range of motion. No lumbar neurotension signs with negative straight leg raise, reverse straight leg raise, and femoral stretch test bilaterally. Bilateral hips are nontender to palpation with negative hip pointer signs. Muscle strength is 5 out of 5 and equal bilateral lower extremities. DTRs are 2/4 and equal bilateral lower extremities. No myel (more content not included)... [facility] Provider Letteron 04-24-2023 Provider Letter (Inserted Image. Mckenzie ble to display) Nelson Lua NP [address] [place] [phone] Re: Vinayak Vizcarra Date of Visit: 04/24/2023 Dear Nelson Lua, Thank you for allowing me to contribute to the care of your patient, Vinayak Vizcarra. Attached is my office note and you will find my assessment and recommendations from our encounter today. Please do not hesitate to contact me with any questions or concerns. Sincerely, Audra Lizarraga PA-C [facility] [place] [address] The following document(s) were included in the letter: April 24, 2023 09:59:03 EDT - (04/24/2023) Neurosurgery Office Visit Note [facility] Provider Letteron 03-22-2023 Provider Letter (Inserted Image. Mckenzie ble to display) Nelson Lua, STEVE [address] [place] [address] Re: Vinayak Vizcarra Date of Visit: 03/22/2023 Dear Nelson Lua, Thank you for allowing me to contribute to the care of your patient, Vinayak Vizcarra. Attached is my office note and you will find my assessment and recommendations from our encounter today. Please do not hesitate to contact me with any questions or concerns. Sincerely, Audra Lizarraga PA-C [facility] [address] [address] The following document(s) were included in the letter: March 22, 2023 08:51:27 EDT - (03/22/2023) Neurosurgery Office Visit Note [facility] Gastroenterology Office/Clin ic Noteon 02-02-2023 Gastroenterology Office/Clinic Note Chief Complaint pt c/o hiccups 3 times per day. History of Present Illness Patient presents to GI clinic for f/u of hiccups and GERD. Denies fever, chills, nausea or vomiting. last OV was given dicyclomine which relieved the hiccups. States they are not all day long, but daily and has at least 5-7 of them. Denies hematochezia, melena or hematemesis. Having a daily stool, type 6 on BSFS, soft but not diarrhea. US renal/bladder stable. does have planned MRI lower back given persistent pain/failed pain mgmt injections. egd 10/19/2022 Impression and Plan EGD: Diagnosis: Gastric erythema ([id number] K31.9, Discharge, Medical), Gastric polyp ([id number] K31.7, Discharge, Medical), Irregular Z line of esophagus ([id number] K22.9, Discharge, Medical). Orders: Pathology reports to be followed. Continue PPI Avoid NSAIDs. Lifestyle modifications including HOB elevation, allowing at least 1-3 hours after eating before lying down, avoiding alcohol and avoiding smoking. Return to GI clinic per schedule. cy 10/19/2022 Impression and Plan Colonoscopy: Diagnosis: Colon polyps ([id number] K63.5, Discharge, Medical), Diverticula, colon ([id number] K57.30, Discharge, Medical), Internal hemorrhoids ([id number] K64.8, Discharge, Medical). Orders: Pathology reports to be followed. High fiber diet, adequate PO hydration Return to GI clinic per schedule.. Education and Follow-up: Counseled: Patient, Family. Recommended repeat colonoscopy: Await pathology results. pathology 10/19/2022 Part A: Gastric polyp, biopsy:Fundic gland polyps. Part B: Gastric erythematous area, biopsy:Essentially unremarkable gastric mucosa. Part C: Irregular z line, biopsy:Benign, reactive squamous mucosa.Inflamed glandular mucosa negative for intestinal metaplasia. Part D: Cecal polyp, biopsy:Fragments of tubular adenoma. Part E: Descending colon polyp, biopsy:Mixed tubular adenoma and hyperplastic polyp. Part F: Transverse colon polyp, biopsy:Fragments of tubular adenoma. last CY done 2016, tubular adenoma, done with DY, see scanned in documents. CTAP done 08/2022: no intraabdominal findings PCP: Chanell Review of Systems Constitutional: No fevers, chills, sweats Eye: No recent visual problems ENMT: No ear pain, nasal congestion, sore throat Respiratory: No shortness of breath, cough Cardiovascular: No Chest pain, palpitations, syncope Gastrointestinal: SEE HPI Genitourinary: No hematuria, no urgency/frequency Lymph: Negative for bruising tendency, swollen lymph glands Endocrine: Negative for excessive thirst, excessive hunger Musculoskeletal: No back pain, neck pain, joint pain, muscle pain, decreased range of motion Integumentary: No rash, pruritus, abrasions Neurologic: Alert & oriented X 4 to person, place, time and situation Psychiatric: No anxiety, depression Physical Exam Vitals & Measurements HR: 58 (Peripheral) BP: 130/78 SpO2: 97 HT: 178 cm WT: 92.4 kg WT: 92.4 kg (Dosing) BMI: 29.16 General: Alert and oriented, well nourished, no acute distress. Eye: PERRL, EOMI, normal conjunctiva. HENT: Normocephalic, clear tympanic membranes, normal hearing, moist oral mucosa, no scleral icterus, no sinus tenderness Neck: Supple, non-tender, no carotid bruits, no JVD, no lymphadenopathy. Lungs: Clear to auscultation and percussion, non-labored respiration. Heart: Normal rate, regular rhythm, no murmur, gallop or edema. Abdomen: Soft, non-tender, non-distended, normal bowel sounds, no masses. Musculoskeletal: Normal range of motion and strength, no tenderness or swelling. Skin: Skin is warm, dry and pink, no rashes or lesions. Neurologic: Awake, alert, and oriented X3 Psychiatric: Cooperative, appropriate mood and affect. Additional Vitals BP Position/Location: Sitting, Left arm Assessment/Plan Orders: dicyclomine, 1 caps, Oral, BID, # 180 caps, 1 Refill(s), Pharmacy: [facility] [id number] 1. Hiccups, GERD - on PPI, trial of dicyclomine did resolve hiccups, cont prn rx sent - US renal bladder stable, ongoing back pain, pending MRI back - check US renal/bladder to r/o kidney stone - EGD/CY stable - advise adequate water intake - enc. weight loss, avoid supine position for 3 hours after meals - avoid foods that decrease LES pressure, avoid overeating, avoid alcohol, nsaid, nicotine use. 2. Tubular adenoma - repeat CY in 3 years pending clinical picture given advanced age Medical Decision Making Chronic conditions NOT treated during this visit that affected my overall medical decision making: [] Treatment plans discussed but not opted for at this time: [] Prescribed medication that requires intensive monitoring for toxicity: [] I have reviewed the patient?s medication list for medication interactions/contraindicat ions and/or for upcoming procedures: [yes or no] Time Spent with the Patient I have personally spent [22] minutes on this date, directly related to today's patient visit, including pre and p (more content not included)... [facility] Gastroenterology Consultatio non 10-19-2022 Gastroenterology Consultation This is an 82-year-old man who presented to the endoscopy unit for diagnostic EGD, colonoscopy in the setting of predominant persistent GERD unable to wean off PPI for last several years; ongoing LLQ abdominal pain over the last [address] A/P at an outside facility showed no evidence of diverticulitis Patient denies any fever/chills, sick contacts, travel history, unintentional weight loss, early satiety, anorexia, hematemesis, melena or hematochezia. Review of Systems Constitutional : No weight loss, fever, chills, weakness or fatigue. HEENT: Eyes: No visual loss, blurred vision, double vision or yellow sclerae. Ears, Nose, Throat: No hearing loss, sneezing, congestion, runny nose or sore throat. Skin: No rash or itching. Cardiovascular: No chest pain, chest pressure or chest discomfort. No palpitations or edema. Respiratory: No shortness of breath, cough or sputum. Neurological: No headache, dizziness, syncope, paralysis, ataxia, numbness or tingling in the extremities. No change in bowel or bladder control. Musculoskeletal : No muscle, back pain, joint pain or stiffness. Psychiatric: Cooperative, appropriate mood and affect. Physical Examination Patient is hemodynamically stable and afebrile. HEENT: no scleral icterus Skin: no rashes noted Lungs: CTA B/L Cardiovascular system: S1,S2 heard ,Normal rate and rhythm, no rub Abdomen: Soft, no tenderness+, Bowels sounds+ OCCUPATIONAL THERAPY ASSIST: no focal deficits Recommendations Will schedule EGD + colonoscopy .The alternatives , benefits; risks and complications which include but are not limited to bleeding, perforation, infection, missing a lesion and complications of anesthesia explained to the patient . Patient understood and consented for procedure. Electronically signed by Jan MONTE, Bee Joseph 10/19/22 11:36 EST [facility] Operative Reporton 3 Operative Report Missing Attachment 3 [id number] Can be viewed in source system Missing Attachment [id number] Can be viewed in source system Missing Attachment [id number] Can be viewed in source system Missing Attachment [id number] Can be viewed in source system Missing Attachment [id number] Can be viewed in source system Missing Attachment [id number] Can be viewed in source system Missing Attachment [id number] Can be viewed in source system Missing Attachment [id number] Can be viewed in source system Patient: Vinayak Vizcarra Age: 82 years Sex: Male : 1940 Associated Diagnoses: Colon polyps; Diverticula, colon; Internal hemorrhoids Author: Jan MONTE, Bee Joseph Pre-Procedure Procedure Date: 10/19/2022 . Procedure Type: Colonoscopy. Procedure provider: Performed by Jan MONTE, Bee Joseph. Current history and physical: Documented on chart, Allergies (3) Active Reaction traMADol Lightheadedness Neurontin dizziness Zanaflex Dizziness , Medications (2) Active Scheduled: (0) Continuous: (1) Lactated Ringers 1,000 mL 1,000 mL, IV, 15 mL/hr PRN: (1) sodium chloride 0.9% Inj Soln 10 mL Flush 10 mL, IV Push, As Indicated . Family History: Heart attack Father () Lung cancer Mother () . Social History: Social & Psychosocial Habits Alcohol 08/27/2018 Use: Never Substance Abuse 07/01/2016 Use: Denies All Tobacco 10/10/2022 Use: Former smoker, quit more . Procedure History: Colonoscopy on 06/14/2017 at 76 Years. Comments: 02/20/2020 13:23 EDT - Virginie Contreras Previous: 04/04/2012 Lumbar/Sacral Nerve Root Injection (Right) on 07/13/2016 at 75 Years. Comments: 07/13/2016 13:22 BITAT - Jose M Martínez auto-populated from documented surgical case left shoulder surgery on 06/17/2016 at 75 Years. Wire removed from left foot in 2010 at 70 Years. prostate reduction in 2010 at 70 Years. TURP in 2005 at 65 Years. Rt Knee Arthroscopy in 2002 at 62 Years. Rt Shoulder Surgery in 2001 at 61 Years. TURP in 1996 at 56 Years. Rt Shoulder surgery in 1994 at 54 Years. Bilateral cataract extraction in 1990 at 50 Years. ORIF left leg in 1968 at 28 Years. Comments: 07/01/2016 9:40 BITAT - Lucila Cheng Pins placed Lumbar laminectomy in 1956 at 16 Years. EGD. Excision of basal cell carcinoma and melanoma in situ (2007, 2009).. Problem History: All Problems Acid reflux / [id number] / Confirmed Basal cell carcinoma / [id number] / Confirmed BPH - benign prostatic hyperplasia / [id number] / Confirmed Colon polyp: tubular adenoma (2016) / [id number] / Confirmed Colon polyp: adenomatous and hyperplastic (2011) / [id number] / Confirmed Diverticular disease / [id number] / Confirmed Double vision / [id number] / Confirmed Enlarged prostate / [id number] / Confirmed Fibromyalgia / [id number] / Confirmed Heartburn / [id number] / Confirmed Hernia / [id number] / Confirmed Hiatal hernia / [id number] / Confirmed Hypertension / [id number] / Confirmed Numbness of hands / AZEGxwEmLzUcjcwOwKgAAg / Confirmed Osteoarthritis / [id number] / Confirmed Osteopenia / [id number] / Confirmed Vertigo / [id number] / Confirmed. Informed Consent: After discussing the rationale, risks and benefits, and alternatives to this procedure, the patient provided signed consent for the procedure. Indication: Unexplained chronic abdominal pain. Medications: (Selected) Inpatient Medications Ordered LR 1,000 mL: 15 mL/hr, IV Normal Saline Flush 0.9% injectable solution: 10 mL, IV Push, As Indicated, PRN: flush Prescriptions Prescribed gabapentin 100 mg oral capsule: 1 caps, Oral, TID, 90 caps, 0 Refill(s) Documented Medications Documented Advil PM: 1 tabs, Oral, HS (at bedtime), PRN: as needed for insomnia, 0 Refill(s) Calcium, Magnesium and Zinc oral tablet: 1 tabs, Oral, Daily, 0 Refill(s) Flax Seed Oil: 1 tabs, Oral, Daily, 0 Refill(s) Misc Medication: 5 mL, 0 Refill(s) aspirin 81 mg oral tablet: 1 tabs, Oral, Daily, 0 Refill(s) fluticasone 50 mcg/inh nasal spray: 16 g, USE 1 SPRAY(S) IN EACH NOSTRIL ONCE DAILY, 0 Refill(s) latanoprost 0.005% ophthalmic solution: 1 drops, Eye-Both, HS (at bedtime), 2.5 mL, 0 Refill(s) lisinopril 20 mg oral tablet: 1 tabs, Oral, Daily, 0 Refill(s) omeprazole 20 mg oral delayed release tablet: 1 tabs, Oral, Daily, 0 Refill(s) pravastatin 20 mg oral tablet: 1 tabs, Oral, Daily, 0 Refill(s) tamsulosin 0.4 mg oral capsule: 1 caps, Oral, Daily, 30 caps, 0 Refill(s). ASA Classification: Class II. Monitoring: See anesthesia record. Procedure Location: Endo Suite. See anesthesia record for sedation given during procedure. Rectal exam was performed and was normal. The patient was positioned starting in the left lateral decubitus position. Endoscope ty (more content not included)... [facility] Comment on above: Order Comment: Anette ng Attachment [id number] Can be viewed in source system Missing Attachment [id number] Can be viewed in source system Missing Attachment [id number] Can be viewed in source system Missing Attachment [id number] Can be viewed in source system Missing Attachment [id number] Can be viewed in source system Missing Attachment [id number] Can be viewed in source system Missing Attachment [id number] Can be viewed in source system Missing Attachment [id number] Can be viewed in source system Operative Report Missing Attachment 3 [id number] Can be viewed in source system Missing Attachment [id number] Can be viewed in source system Missing Attachment [id number] Can be viewed in source system Missing Attachment [id number] Can be viewed in source system Missing Attachment [id number] Can be viewed in source system Missing Attachment [id number] Can be viewed in source system Missing Attachment [id number] Can be viewed in source system Missing Attachment [id number] Can be viewed in source system Missing Attachment [id number] Can be viewed in source system Missing Attachment [id number] Can be viewed in source system Missing Attachment [id number] Can be viewed in source system Patient: Vinayak Vizcarra Age: 82 years Sex: Male : 1940 Associated Diagnoses: Gastric erythema; Gastric polyp; Irregular Z line of esophagus Author: eBe Montoya MD Pre-Procedure Procedure Date: 10/19/2022 . Procedure Type: Esophagogastroduodenoscopy . Procedure provider: Performed by Bee Montoya MD. Current history and physical: Documented on chart. Informed Consent: After discussing the rationale, risks and benefits, and alternatives to this procedure, the patient provided signed consent for the procedure. Indication: Diagnostic: GERD. Medications: Medications reviewed.. ASA Classification: Class II. Monitoring: See anesthesia record. Procedure Location: Endo Suite. See anesthesia record for sedation given during procedure. The patient was positioned starting in the left lateral decubitus position. Endoscope type used was an adult-size, introduced orally, advanced to the 2nd portion of the duodenum. Procedure was completed without difficulty. Views were good. Squamocolumnar junction biopsies were taken Gastric biopsies were taken of the fundus and of the body. The patient tolerated the procedure well. Findings No gross lesions were noted in the esophagus. Mildly irregular Z-line was noted at 40 cm-biopsies were taken. An 8 mm sessile polyp was found in the gastric body-s/p removal with hot snare polypectomy. A hemostatic clip was placed at the site. No bleeding was noted at the end of the maneuvers. Mildly erythematous, edematous mucosal folds were noted in the gastric fundus, body-biopsies were taken No gross lesions were noted in the examined portion of the duodenum. Images Procedure images: EGD_0001.jpg EGD_0002.jpg EGD_0003.jpg EGD_0004.jpg EGD_0005.jpg EGD_0006.jpg EGD_0007.jpg EGD_0008.jpg EGD_0009.jpg EGD_0010.jpg EGD_0011.jpg . Post-Procedure Complications encountered during the procedure were none. Specimens were sent to pathology. Impression and Plan EGD: Diagnosis: Gastric erythema (GUU81-VZ K31.9, Discharge, Medical), Gastric polyp (OXH48-JB K31.7, Discharge, Medical), Irregular Z line of esophagus (YYT30-PO K22.9, Discharge, Medical). Orders: Pathology reports to be followed. Continue PPI Avoid NSAIDs. Lifestyle modifications including HOB elevation, allowing at least 1-3 hours after eating before lying down, avoiding alcohol and avoiding smoking. Return to GI clinic per schedule. . Education and Follow-up: Counseled: Patient, Family. Electronically signed by Jan MONTE, Bee Joseph 10/19/22 11:40 EST [facility] Comment on above: Order Comment: Anette mendieta Attachment [id number] Can be viewed in source systemMissing Attachment [id number] Can be viewed in source systemMissing Attachment [id number] Can be viewed in source systemMissing Attachment [id number] Can be viewed in source systemMissing Attachment [id number] Can be viewed in source systemMissing Attachment [id number] Can be viewed in source systemMissing Attachment [id number] Can be viewed in source systemMissing Attachment [id number] Can be viewed in source systemMissing Attachment [id number] Can be viewed in source systemMissing Attachment [id number] Can be viewed in source systemMissing Attachment [id number] Can be viewed in source system Gastroenterology Office/Clin ic Noteon 10-10-2022 Gastroenterology Office/Clinic Note Chief Complaint New Patient. Lower left quad pain History of Present Illness Patient has past medical history of GERD, basal cell carcinoma, BPH, tubular adenoma in the colon, diverticulosis, hiatal hernia hypertension and osteoarthritis. He is an 82-year-old male who presents to GI clinic with multiple GI complaints including persistent GERD, unable to wean PPI for several years and left lower quadrant pain, ongoing for 2 months. States LLQ worsened initially by activity/exercising, now this does not cause the pain to be worse. Had a CT abdomen pelvis early August at outside facility, this has been reviewed no evidence of diverticulitis. He is having a daily bowel movement type IV Daniels stool scale form, no blood. Denies any hematochezia, melena or hematemesis. Denies any fevers chills nausea or vomiting. last CY done 2016, tubular adenoma, done with DY, see scanned in documents. CTAP done 08/2022: no intraabdominal findings PCP: Chanell Review of Systems Constitutional: No fevers, chills, sweats Eye: No recent visual problems ENMT: No ear pain, nasal congestion, sore throat Respiratory: No shortness of breath, cough Cardiovascular: No Chest pain, palpitations, syncope Gastrointestinal SEE HPI Genitourinary: No hematuria, no urgency/frequency Lymph: Negative for bruising tendency, swollen lymph glands Endocrine: Negative for excessive thirst, excessive hunger Musculoskeletal: No back pain, neck pain, joint pain, muscle pain, decreased range of motion Integumentary: No rash, pruritus, abrasions Neurologic: Alert & oriented X 4 to person, place, time and situation Psychiatric: No anxiety, depression Physical Exam Vitals & Measurements HR: 63 (Peripheral) BP: 130/75 SpO2: 97 HT: 178 cm WT: 93.3 kg WT: 93.3 kg (Dosing) BMI: 29.45 General: Alert and oriented, well nourished, no acute distress. Eye: PERRL, EOMI, normal conjunctiva. HENT: Normocephalic, clear tympanic membranes, normal hearing, moist oral mucosa, no scleral icterus, no sinus tenderness Neck: Supple, non-tender, no carotid bruits, no JVD, no lymphadenopathy. Lungs: Clear to auscultation and percussion, non-labored respiration. Heart: Normal rate, regular rhythm, no murmur, gallop or edema. Abdomen: Soft, non-tender, non-distended, normal bowel sounds, no masses. Musculoskeletal: Normal range of motion and strength, no tenderness or swelling. Skin: Skin is warm, dry and pink, no rashes or lesions. Neurologic: Awake, alert, and oriented X3 Psychiatric: Cooperative, appropriate mood and affect. Additional Vitals BP Position/Location: Sitting, Left arm Assessment/Plan 1. Left lower quadrant pain - no evidence of diverticulitis on imaging - check CY, sutab sample provided to patient - he wants to r/o cancer - The benefits and risks associated with a colonoscopy have been outlined to the patient. The patient was advised that complications include, but are not limited to, perforation (hole in the bowel), bleeding, infection, electrolyte disturbance from the colon prep and complications associated with sedation (including heart and lung issues that could result in ). The patient verbalized understanding of the risks and consents to the procedure. 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 2. GERD - persistent symptoms, controlled on PPI, unable to wean - check EGD to r/o PUD, HH, BE, h.pylori - enc. weight loss, avoid supine position for 3 hours after meals - avoid foods that decrease LES pressure, avoid overeating, avoid alcohol, nsaid, nicotine use. Medical Decision Making Chronic conditions NOT treated during this visit that affected my overall medical decision making: [] Treatment plans discussed but not opted for at this time: [] Prescribed medication that requires intensive monitoring for toxicity: [] I have reviewed the patient?s medication list for medication interactions/contraindicat ions and/or for upcoming procedures: [yes or no] Time Spent with the Patient I have personally spent [46] minutes on this date, directly related to today's patient visit, including pre and post visit work, for this date of service. Time listed does not include time spent on separately billable services. Provider Comments f/u after scopes Problem List/Past Medical History Ongoing Acid reflux Basal cell carcinoma BPH - benign prostatic hyperplasia Colon polyp: adenomatous and hyperplastic (2011) Colon polyp: tubular adenoma (2016) Diverticular disease Double vision Enlarged prostate Fibromyalgia Heartburn Hernia Hiatal hernia Hypertension Numbness of hands Osteoarthritis Osteopenia Vertigo Historical Melanoma in situ (2009) Procedure/Surgical History EGD Excision of basal cell carcinoma and melanoma in situ (2007, 2009) Lumbar laminectomy (1956) ORIF left leg (1968) Bilateral cataract extraction (1990 (more content not included)... [facility] [id number] 12-17-2021 SARS-CoV-2 (COVID-19) RNA TIMO+probe Ql (Unsp spec) Not detected Normal [facility] Comment on above: Result Comment: Rapid NAAT: The specimen is NEGATIVE for SARS-CoV-2, the novel coronavirus associated with COVID-19. The ID NOW COVID-19 assay is designed to detect the virus that causes COVID-19 in patients with signs and symptoms of infection who are suspected of COVID-19. An individual without symptoms of COVID-19 and who is not shedding SARS-CoV-2 virus would expect to have a negative (not detected) result in this assay. Negative results should be treated as presumptive and, if inconsistent with clinical signs and symptoms or necessary for patient management, should be tested with an alternative molecular assay. Negative results do not preclude SARS-CoV-2 infection and should not be used as the sole basis for patient management decisions. Fact sheet for Healthcare Providers: https://www.fda.gov/media/725935/download Fact sheet for Patients: https://www.fda.gov/media/082760/download Methodology: Isothermal Nucleic Acid Amplification Performed By: #### C OVRB #### [facility] [address] [place] [address] Diesel Engine Erector: Florencio Mcginnis MD [id number] 12-03-2021 SARS-CoV-2 (COVID-19) RNA TIMO+probe Ql (Unsp spec) Not detected Normal [facility] Comment on above: Result Comment: Rapid NAAT: The specimen is NEGATIVE for SARS-CoV-2, the novel coronavirus associated with COVID-19. The ID NOW COVID-19 assay is designed to detect the virus that causes COVID-19 in patients with signs and symptoms of infection who are suspected of COVID-19. An individual without symptoms of COVID-19 and who is not shedding SARS-CoV-2 virus would expect to have a negative (not detected) result in this assay. Negative results should be treated as presumptive and, if inconsistent with clinical signs and symptoms or necessary for patient management, should be tested with an alternative molecular assay. Negative results do not preclude SARS-CoV-2 infection and should not be used as the sole basis for patient management decisions. Fact sheet for Healthcare Providers: https://www.fda.gov/media/845850/download Fact sheet for Patients: https://www.fda.gov/media/598555/download Methodology: Isothermal Nucleic Acid Amplification Performed By: #### C OVRB #### [facility] [address] [place] [address] [employer] Engine Erector: Florencio Mcginnis MD Vital Signs Date Time Vital Sign Value Performing Clinician Facility 12-17-2021 13:30-0400 Diastolic blood pressure 66 mm[Hg] Akhil Awan MD Work Phone: [facility] 12-17-2021 13:30-0400 Heart rate 56 /min Akhil Awan MD Work Phone: [facility] 12-17-2021 13:30-0400 Respiratory rate 18 /min Akhil Awan MD Work Phone: [facility] 12-17-2021 13:30-0400 SaO2% (BldA) [Mass fraction] 95 % Ahkil Awan MD Work Phone: [facility] 12-17-2021 13:30-0400 Systolic blood pressure 137 mm[Hg] Akhil Awan MD Work Phone: [facility] 12-17-2021 13:00-0400 Body temperature 97 [degF] Akhil Awan MD Work Phone: [facility] 12-17-2021 10:34-0400 Body height 177.8 cm Akhil Awan MD Work Phone: [facility] 12-17-2021 10:34-0400 Body mass index (BMI) [Ratio] 29.99 kg/m2 Akhil Awan MD Work Phone: [facility] 12-17-2021 10:34-0400 Body weight 94.8 kg Akhil Awan MD Work Phone: [facility] 12-03-2021 13:00-0400 Diastolic blood pressure 62 mm[Hg] Akhil Awan MD Work Phone: [facility] 12-03-2021 13:00-0400 Heart rate 56 /min Akhil Awan MD Work Phone: [facility] 12-03-2021 13:00-0400 Respiratory rate 12 /min Akhil Awan MD Work Phone: [facility] 12-03-2021 13:00-0400 SaO2% (BldA) [Mass fraction] 95 % Akhil Awan MD Work Phone: [email or web address] 12-03-2021 13:00-0400 Systolic blood pressure 125 mm[Hg] Akhil Awan MD Work Phone: [email or web address] 12-03-2021 11:36-0400 Body temperature 97.39 [degF] Akhil Awan MD Work Phone: [email or web address] 12-03-2021 11:12-0400 Body height 177.8 cm Akhil Awan MD Work Phone: [email or web address] 12-03-2021 11:12-0400 Body mass index (BMI) [Ratio] 28.98 kg/m2 Akhil Awan MD Work Phone: [email or web address] 12-03-2021 11:12-0400 Body weight 91.63 kg Akhil Awan MD Work Phone: [email or web address] 03-20-2014 13:55-0400 BMI (Body Mass Index) 30.13 kg/m2 Miguel Antonio [employer] 03-20-2014 13:55-0400 Body weight 95.26 kg Miguel Antonio [employer] 03-20-2014 13:55-0400 BP Diastolic 62 mm[Hg] Miguel Antonio [employer] 03-20-2014 13:55-0400 BP Diastolic 60 mm[Hg] Miguel Antonio [employer] 03-20-2014 13:55-0400 BP Systolic 124 mm[Hg] Miguel [employer] 03-20-2014 13:55-0400 BSA (Body Surface Area) 2.17 m2 Miguel Antonio [employer] 03-20-2014 13:55-0400 Height 177.8 cm Miguel Antonio [employer] 03-20-2014 13:55-0409 Pulse (Heart Rate) 84 /min Miguel Antonio Gwendolyn de jesusy [employer] 03-20-2014 [id number] Weight 95.26 kg Miguel [facility] [employer] Encounters Encounter Date Encounter Type Care Provider Facility Start: 10-11-2023 ambulatory Nelson Lua NP Facil ity:[facility] Start: 10-04-2023 ambulatory Nelson Lua NP Facil ity:[facility] Start: 09-22-2023 End: 09-22-2023 ambulatory CATHERINE FIGUEROA [facility] Start: 09-22-2023 End: 09-22-2023 Office outpatient new 45 minutes Catherine Figueroa MD Work Phone: [facility] Comment on above: PCO (posterior capsu lar opacification), bilateral (Primary Dx); Pseudophakia of both eyes; Low-tension glaucoma of both eyes, mild stage; Epiretinal membrane (ERM) of right eye Start: 09-21-2023 End: 09-22-2023 ambulatory Nelson Lua NP Facility:[facility] Start: 2023 End: 09-19-2023 ambulatory Nelson Lua NP Facility:[facility] Start: 09-06-2023 Viraj samson OD Work Phone: [facility] Comment on above: Low-tension glaucoma of both eyes, mild stage Start: 08-25-2023 Office outpatient vi sit 15 minutes Miguel Antonio Other [facility] Start: 08-15-2023 End: 08-16-2023 ambulatory Audra Lizarraga PA-C Facility:[facility] Start: 08-10-2023 End: 08-11-2023 ambulatory Nelson Lua NP Facility:[facility] Start: 07-27-2023 End: 07-28-2023 ambulatory Audra Irma Ickes PA-C Facility:[facility] Start: 07-24-2023 End: 07-24-2023 ambulatory Ken Cespedes III, MD Facility:[facility] Start: 07-17-2023 End: 07-18-2023 ambulatory Ken Cespedes III, MD Facility:[facility] Start: 07-15-2023 End: 07-16-2023 ambulatory Miguel Cevallos DO Facility:[facility] Start: 07-14-2023 End: 07-15-2023 ambulatory Ken Cespedes III, MD Facility:[facility] Start: 07-04-2023 End: 07-05-2023 ambulatory Audra Lizarraga PA-C Facility[facility] Start: 05-30-2023 End: 05-31-2023 ambulatory Audra Lizarraga PA-C Facility:[facility] Start: 04-24-2023 End: 04-25-2023 ambulatory Audra Lizarraga PA-C Facility:[facility] Start: 03-22-2023 End: 03-23-2023 ambulatory Audra Renee Ickes PA-C Facility:[facility] Start: 02-22-2023 Office outpatient vi sit 25 minutes Miguel Antonio Other [facility] Office Start: 02-02-2023 End: 02-03-2023 ambulatory Nelson Lua WALL MAN Facility[facility] Start: 12-01-2022 End: 12-02-2022 ambulatory Nelson A Chanell WALL MAN Facility:[facility] Start: 10-19-2022 End: 10-19-2022 ambulatory Bee Montoya MD Facility:[facility] Start: 10-10-2022 End: 10-11-2022 ambulatory Nelson Lua WALL MAN Facility:[facility] Start: 08-31-2022 Office Services Miguel breen Other [facility] Office Start: 08-12-2022 End: 08-12-2022 ambulatory [facility] Start: 03-01-2022 Office outpatient vi sit 15 minutes Miguel Antonio Other [facility] Office Start: 12-17-2021 End: 12-17-2021 ambulatory [facility] Start: 12-17-2021 End: 12-17-2021 Subsequent hospital visit by physician Akhil Awan MD Work Phone: [facility] Start: 12-17-2021 End: 12-17-2021 [facility] Start: 12-03-2021 End: 12-03-2021 ambulatory [facility] Start: 12-03-2021 End: 12-03-2021 Subsequent hospital visit by physician Akhil Awan MD Work Phone: [facility] Comment on above: S/P endoscopic carpa l tunnel release (Primary Dx) Start: 12-03-2021 End: 12-03-2021 [facility] Start: 08-31-2021 Office outpatient vi sit 15 minutes Miguel Antonio Other [facility] Office Start: 03-01-2021 Office outpatient vi sit 15 minutes Miguel nAtonio Other [facility] Office Start: 08-26-2020 Office outpatient vi sit 15 minutes Miguel Antonio Other [facility] Office Start: 02-25-2020 Office outpatient vi sit 15 minutes Miguel Antonio Other [facility] Office Start: 08-27-2019 Office outpatient vi sit 15 minutes Miguel Antonio Other [facility] Office Start: 02-22-2019 Office outpatient vi sit 15 minutes Miguel Antonio Other [facility] Office Start: 08-24-2018 Office outpatient vi sit 10 minutes Miguel Antonio Other [facility] Office Start: 02-20-2018 Office outpatient vi sit 10 minutes Miguel Antonio Other [facility] Start: 08-18-2017 Follow-up visit Miguel Antonio [facility] Start: 08-18-2017 Office outpatient vi sit 5 minutes Miguel Antonio [email or web address] Start: 08-18-2017 Postoperative follow -up visit Miguel Antonio [employer] Start: 08-18-2017 Procedure Miguel breen Other [facility] Office Start: 08-11-2017 Office outpatient vi sit 10 minutes Miguel Antonio Other [facility] Office Start: 07-07-2017 Patient encounter procedure Jerry Sanchez OD Work Phone: [facility] Start: 03-30-2017 Procedure Miguel breen Other [facility] Office Start: 02-08-2017 Office outpatient vi sit 10 minutes Miguel Antonio Other [facility] Office Start: 08-10-2016 Office outpatient vi sit 10 minutes Miguel Antonio Other [facility] Office Start: 01-29-2016 Office outpatient vi sit 10 minutes Miguel Antonio Other [facility] Office Start: 07-31-2015 Office outpatient vi sit 15 minutes Miguel Antonio Other [facility] Office Start: 01-28-2015 Office outpatient vi sit 15 minutes Miguel Antonio Other [facility] Start: 08-18-2014 Office Services Miguel breen Other [facility] Office Start: 03-20-2014 Office Services Miguel Estrella [facility] Start: 03-20-2014 Procedure Florencio Morgan Other [facility] Start: 02-14-2014 Office Services Miguel breen Other [facility] Start: 01-16-2014 Procedure Florencio Morgan Other [facility] Start: 01-09-2014 Procedure Keith martínez Other [facility] Start: 08-14-2013 Office Services Miguel breen Other [facility] Start: 03-08-2013 Office Services Miguel breen Other [facility] Start: 02-19-2013 Office Services Miguel breen Other [facility] Start: 01-28-2013 Office Services Miguel breen Other [facility] Procedures Date Procedure Procedure Detail Performing Clinician Start: 08-25-2023 Docrev cur meds by milena Antonio Start: 08-17-2023 Adult depression screening assessment Jerry Sanchez OD Work Phone: Start: 08-31-2022 Docrev cur meds by milena Antonio Start: 03-01-2022 Destruction of premalignant skin lesion Miguel Antonio Start: 03-01-2022 Docrev cur meds by milena Antonio Start: 08-31-2021 Destruction of premalignant skin lesion Miguel Antonio Start: 08-31-2021 Docrev cur meds by milena Antonio Start: 03-01-2021 Destruction of premalignant skin lesion Miguel Antonio Start: 08-26-2020 Destruction of premalignant skin lesion Miguel Antonio Start: 08-26-2020 Doc meds verified w/pt or re Miguel Antonio Start: 08-26-2020 Tangential biopsy skin single lesion Miguel Antonio Start: 02-25-2020 Destruction of premalignant skin lesion Miguel Antonio Start: 02-25-2020 Doc meds verified w/pt or re Miguel Antonio Start: 08-27-2019 Current Medications Verified MIPS Miguel Antonio Start: 08-27-2019 Tangential biopsy skin single lesion Miguel Antonio Start: 02-22-2019 Destruction of premalignant skin lesion Miguel Antonio Start: 02-22-2019 Destruction premalignant lesion 1st Miguel Antonio Start: 02-22-2019 Doc meds verified w/pt or re Miguel Antonio Start: 08-24-2018 Destruction of premalignant skin lesion Miguel Brothersrns Start: 08-24-2018 Destruction premalignant lesion 1st Miguel Brothersrns Start: 08-24-2018 Destruction premalignant lesion 2-14 ea Miguel Paco Start: 08-24-2018 Doc meds verified w/pt or re Miguel Antonio Start: 02-20-2018 Destruction of premalignant skin lesion Miguel Paco Start: 02-20-2018 Destruction premalignant lesion 1st Miguel Paco Start: 02-20-2018 Destruction premalignant lesion 2-14 ea Miguel Paco Start: 08-18-2017 Postoperative follow-up visit Miguel Antonio Start: 08-11-2017 Biopsy of upper limb Miguel Antonio Start: 08-11-2017 Bx skin subcutaneous&/mucous membrane 1 lesion Miguel Antonio Start: 08-11-2017 Destruction of premalignant skin lesion Miguel Paco Start: 08-11-2017 Destruction premalignant lesion 1st Miguel Paco Start: 08-11-2017 Destruction premalignant lesion 2-14 ea Miguel Paco Start: 03-30-2017 Destruction of premalignant skin lesion Migule Paco Start: 03-30-2017 Destruction premalignant lesion 1st Miguel Paco Start: 02-08-2017 Biopsy of upper limb Miguel Paco Start: 02-08-2017 Bx skin subcutaneous&/mucous membrane 1 lesion Miguel Antonio Start: 02-08-2017 Destruction of premalignant skin lesion Miguel Brothersrns Start: 02-08-2017 Destruction premalignant lesion 1st Miguel Antnoio Start: 02-08-2017 Destruction premalignant lesion 2-14 ea Miguel Antonio Start: 02-08-2017 Doc meds verified w/pt or re Migule Antonio Start: 08-10-2016 Destruction of premalignant skin lesion Miguel Antonio Start: 08-10-2016 Destruction premalignant lesion 1st Miguel Antonio Start: 01-29-2016 Destruction of premalignant skin lesion Miguel Antonio Start: 01-29-2016 Destruction premalignant lesion 1st Miguel Antonio Start: 01-29-2016 Destruction premalignant lesion 2-14 ea Miguel Antonio Start: 01-28-2015 Destruction of premalignant skin lesion Miguel Antonio Start: 01-28-2015 Destruction premalignant lesion 1st Miguel Antonio Start: 01-28-2015 Doc meds verified w/pt or re Miguel Antonio Start: 01-28-2015 TOBACCO NON-USER Miguel Antonio Start: 08-18-2014 Doc meds verified w/pt or re Miguel Antonio Start: 08-18-2014 Flu immunize no order/admin Miguel Antonio Start: 08-18-2014 TOBACCO NON-USER Miguel Antonio Start: 03-20-2014 Ecg routine ecg w/least 12 lds w/i&r Miguel Antonio Start: 02-14-2014 Destruction of premalignant skin lesion Miguel Antonio Start: 02-14-2014 Destruction premalignant lesion 1st Miguel Antonio Start: 02-14-2014 Destruction premalignant lesion 2-14 ea Miguel Antonio Start: 02-14-2014 Doc meds verified w/pt or re Miguel Antonio Start: 02-14-2014 TOBACCO NON-USER Miguel Antonio History of decompres дмитрий of median nerve S/P endoscopic carpal tunnel release Akhil Awan MD Work Phone: Plan of Treatment Date Care Activity Detail Author Start: 06-19-2030 DTaP,Tdap and Td Vaccines (3 - Td or Tdap) DTaP,Tdap and Td Vaccines (3 - Td or Tdap) [facility] Start: 06-19-2030 DTaP/Tdap/Td vaccine (2 - Td or Tdap) DTaP/Tdap/Td vaccine (2 - Td or Tdap) [facility] Start: 09-22-2024 Tobacco Screening Tobacco Screening [facility] Start: 08-19-2024 End: 08-19-2024 Patient encounter procedure 08/19/2024 9:30 AM EST [facility] [address] [place] [address] [address] [place] [address] [facility] Start: 08-17-2024 Adult BMI Screening Adult BMI Screen ing [facility] Start: 08-17-2024 Depression Screening Depression Scre ening [facility] Start: 08-17-2024 Fall Risk Screening Fall Risk Screen ing [facility] Start: 08-17-2024 Medicare Annual Wellness Visit Medicare Annual Wellness Visit [facility] Start: 08-17-2024 Tobacco Screening Tobacco Screening [facility] Start: 02-12-2024 End: 02-12-2024 Patient encounter procedure 02/12/2024 8:50 AM EDT Office Visit [facility] [address] [place] [phone] Jerry Sanchez, OD [address] [place] [address] [facility] Start: 02-12-2024 End: 02-12-2024 ambulatory 02/12/2024 8:40 AM EDT Ophthalmology Imaging [facility] [address] [place] [phone] [facility] Start: 11-09-2023 End: 11-09-2023 Patient encounter procedure 11/09/2023 2:45 PM EST Office Visit [facility] [address] [place] [address] [address] [place] [phone] Torres Mcneal Jr., MD [facility] [place] [address] [facility] Start: 09-28-2023 End: 09-28-2023 Patient encounter procedure 09/28/2023 10:45 AM EST Office Visit [facility] [address] [place] [address] Nelson Lua, BOARD MIXER TENDER-VESSEL ENGINEER [address] [facility] [address] [place], [place] [id number] [facility] Start: 09-22-2023 End: 09-22-2023 Patient encounter procedure 09/22/2023 3:00 PM EST Office Visit [facility] [address] [place] [address] Catherine Figueroa MD [address] [place] [address] [facility] Start: 08-18-2023 COVID-19 Vaccine ( season) COVID-19 Vaccine ( season) [facility] Start: 12-17-2021 Annual Wellness Visi t (AWV) Annual Wellness Visit (AWV) [facility] Start: 12-17-2021 End: 12-17-2021 Admission to same day surgery center 12/17/2021 Surgery IP Unit AwanAkhil MD [address] [place] [address] LEFT CARPAL TUNNEL RELEASE ENDOSCOPIC [facility] Comment on above: LEFT CARPAL TUNNEL R ELEASE ENDOSCOPIC Start: 12-17-2021 End: 12-17-2021 Ndmt wrst surg w/rls transvrs [facility] Start: 12-17-2021 Subsequent hospital visit by physician 12/17/2021 Hospital Encounter IP Unit AwanAkhil MD [address] [facility] [address] [facility] Start: 12-17-2021 End: 12-17-2021 Patient encounter procedure 12/17/2021 Appointment Pre-Admission Testing [facility] PRE ADMIT Start: 12-03-2021 End: 12-03-2021 Ndsc wrst surg w/rls transvrs carpl ligm CARPAL TUNNEL RELEASE ENDOSCOPIC RIGHT CARPAL TUNNEL SYNDROME 12/03/2021 12:09 PM EDT [facility] Start: 11-21-2021 Annual Wellness Visi t (AWV) Annual Wellness Visit (AWV) [facility] Start: 1956 Adult BMI Follow Up Plan Adult BMI Follow Up Plan [facility] [facility] Start: 1950 Depression Screen Depression Screen [facility] Start: 1948 Lipid panel Lipid screen [facility] Start: 1943 COVID-19 Vaccine (1) COVID-19 Vaccin e (1) [facility] Start: 1938 Creatinine measurement Creatinine mo nitoring [facility] Start: 1938 Potassium monitoring Potassium monit oring [facility] Oxygen therapy [Mini mum Data Set] Initiate Oxygen Therapy Protocol Respiratory Care Routine As Needed until discontinued starting 12/03/2021 [facility] Work Phone: Comment on above: As Needed until disc ontinued starting 12/03/2021 Oxygen therapy [Mini mum Data Set] Initiate Oxygen Therapy Protocol Respiratory Care Routine As Needed until discontinued starting 12/17/2021 [facility] [employer] Work Phone: Comment on above: As Needed until disc ontinued starting 12/17/2021 Immunizations Immunization Date Immunization Notes Care Provider Fa cili 06-23-2023 COVID-19, mRNA, LNP- S, PF, 30mcg/0.3mL Dose Jerry Sanchez OD Work Phone: [facility] 06-14-2023 RSV, recombinant, protein subunit RSVpreF, adjuvant reconstituted, 0.5 mL, PF Jerry Sanchez OD Work Phone: [facility] 06-14-2023 Seasonal trivalent influenza vaccine, adjuvanted, preservative free Jerry Sanchez OD Work Phone: [facility] 06-15-2022 Influenza, High-dose , Quadrivalent Jerry Sanchez OD Work Phone: [facility] 06-08-2022 Covid-19, Mrna, Lnp- s, Bivalent, Pf, 30mcg/0.3 ml Jerry Sanchez OD Work Phone: [facility] 06-22-2021 Influenza, High-dose , Quadrivalent Jerry Sanchez OD Work Phone: [facility] 06-30-2020 Influenza, High-dose , Quadrivalent Jerry Sanchez OD Work Phone: [facility] 06-19-2020 tetanus toxoid, redu dory diphtheria toxoid, and acellular pertussis vaccine, adsorbed Jerry Sanchez OD Work Phone: [facility] 06-18-2019 influenza, injectabl e, madin naomi canine kidney, preservative free Jerry Sanchez OD Work Phone: [facility] 02-22-2019 zoster vaccine recombinant Jerry Sanchez OD Work Phone: [facility] Work Phone: 12-11-2018 zoster vaccine recombinant Jerry Sanchez OD Work Phone: [facility] 06-15-2018 influenza, seasonal, injectable, preservative free Jerry Sanchez OD Work Phone: [facility] 07-07-2017 influenza, high dose seasonal, preservative-free Jerry Sanchez OD Work Phone: [facility] 06-17-2015 influenza, high dose seasonal, preservative-free Jerry Sanchez OD Work Phone: [facility] 08-27-2014 pneumococcal conjuga te vaccine, 13 valent Jerry Sanchez OD Work Phone: [facility] 07-13-2011 tetanus and diphther ia toxoids, adsorbed, preservative free, for adult use (5 Lf of tetanus toxoid and 2 Lf of diphtheria toxoid) Jerry Simsowski OD Work Phone: [facility] 07-13-2010 influenza, seasonal, injectable Jerry Sanchez OD Work Phone: [facility] 12-21-2009 zoster vaccine, live Jerry lieberman OD Work Phone: [facility] 05-21-2009 influenza, seasonal, injectable Jerry Simsowski OD Work Phone: [facility] 06-30-2005 influenza, seasonal, injectable Jerry Sanchez OD Work Phone: [facility] 06-30-2005 pneumococcal polysaccharide vaccine, 23 valent Jerry Sanchez OD Work Phone: [facility] Payers Date Payer Category Payer Private Health Insurance [id number] 2014 Private Health Insurance [facility] [id number] 2003 Medicare [id number] 2.1 [id number] 2003 Medicare [id number] 2.1 [id number] 2003 Medicare [id number] 1938 Unknown [id number] 2.16.8 40.1.554293.3.579.2.174 1938 Unknown [id number] 2.16.8 40.1.440968.3.579.2.174 1938 Unknown [id number] 2.16.8 40.1.940495.3.579.2.174 1938 Unknown [id number] 2.16.8 40.1.450674.3.579.2.174 1938 Unknown [id number] 2.16.8 40.1.895765.3.579.2.173 1938 Unknown [id number] 2.16. 840.1.712523.3.579.2.196 1938 Unknown [id number] 2.16. 840.1.962540.3.579.2.196 1938 Unknown [id number] 2.16. 840.1.507061.3.579.2.196 1938 Unknown [id number] 2.16. 840.1.271621.3.579.2.196 1938 Unknown [id number] 2.16. 840.1.907358.3.579.2.196 1938 Unknown [id number] 2.16. 840.1.820265.3.579.2.196 1938 Unknown [id number] 2.16. 840.1.934694.3.579.2.196 1938 Unknown [id number] 2.16. 840.1.309971.3.579.2.196 1938 Unknown [id number] 2.16. 840.1.781103.3.579.2.196 1938 Unknown [id number] 2.16. 840.1.238214.3.579.2.196 1938 Unknown [id number] 2.16. 840.1.887124.3.579.2.196 1938 Unknown [id number] 2.16. 840.1.443898.3.579.2.196 1938 Unknown [id number] 2.16. 840.1.264591.3.579.2.196 1938 Unknown [id number] 2.16. 840.1.232215.3.579.2.196 1938 Unknown [id number] 2.16. 840.1.265440.3.579.2.196 1938 Unknown [id number] 2.16. 840.1.333397.3.579.2.196 1938 Unknown [id number] 2.16. 840.1.745497.3.579.2.196 1938 Unknown [id number] 2.16. 840.1.388357.3.579.2.196 1938 Unknown [id number] 2.16. 840.1.775983.3.579.2.196 1938 Unknown [id number] 2.16. 840.1.242880.3.579.2.196 1938 Unknown [id number] 2.16.84 0.1.119472.3.579.2.1286 Unknown [id number] 2.16 .840.1.244434.3.441 Social History Date Type Detail Facility Start: Former smoker [facility] Start: [employer] Start: 11-23-2021 End: 12-08-2022 Former smoker [employer] Start: 09-11-1988 End: 09-11-1988 History of tobacco use Smoker [employer] Phone: Start: 1940 Sex Assigned At Not on file M FRESS Work Phone: Start: 11-23-2021 End: 12-17-2021 Exposure to SARS-CoV-2 (event) Not sure [employer] Start: 11-23-2021 End: 12-08-2022 Tobacco use and exposure Smokeless tobacco non-user [employer] Phone: End: 09-11-1988 History of tobacco use Cigarette Smoker [employer] Start: 09-22-2020 End: 12-08-2022 Cigarettes smoked current (pack per day) - Reported 2 [employer] Start: 08-17-2023 End: 09-22-2023 Alcohol intake Current non-drinker of alcohol (finding) [employer] Start: 09-22-2020 End: 08-17-2023 Tobacco use panel One Touch EMR Sys tem Adolescent depressio n screening assessment 0 [employer] Medical Equipment Procedure Code Equipment Code Equipment Origin al Text Equipment Identifier Dates Mesh 1in Med Pp Srgpro Nabsb Knit Plg Srg Strl Clr Hrn Rpl [id number] - [id number] Start: 07-06-2021 Clinical Notes 12-03-2021 to 09-22-2023 Catherine Figueroa MD - 09/22/2023 3:00 PM Shruti Rodriguez RN - 12/17/2021 2:11 PM Anne-Marie Rushing RN - 12/06/2021 1:16 PM EDTInstructions Note Date & Type Note Facility 09-22-2023 History of Presen t illness Narrative Assessment/Plan: #PCO, OD>OS #Pseudophakia, OU Referral from Dr. Carroll. Yag cap OD only for now. RBA discussed. #LTG, OU SRS has been handling the glaucoma. Notes and testing reviewed. Family hx: Paternal Grandmother Pachy: 579/576 Tmax: 23 OU Gonio: Intolerances/allergies: None IOP today: 23/08 HVF: 09/02 OCT RNFL: 03/03 OD G75 S borderline thinning, OS G73 S/T borderline thinning and I thinning Current meds: Lat 09/11, Sal 2/2 #ERM OD Possible retinal consult in the future #Dry Eye Syndrome/MGD, OU Symptomatic Start ATs 12/13, use WCs, lid scrubs Ocular Surgery/Laser Hx OD: PCIOL OS: PCIOL Plan: Yag cap OD only for now Return for Surgery/laser to sched for Yag Cap OD in . ICD-10-CM 1. PCO (posterior capsular opacification), bilateral H26.493 2. Pseudophakia of both eyes Z96.1 3. 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 Epiretinal membrane (ERM) of right eye H35.371 Vinayak Vizcarra had concerns including Blurred Vision. HPI Blurred Vision In both eyes. Onset was gradual. Comments Pt is here for evaluation of possible PCO. Pt has been seeing Dr. Sanchez for low tension glaucoma. Dr. Carroll has prescribed his glasses in the past. They recently tried to change his glasses but he could not wear them. He left them with Dr. Carroll. Dr. Carroll felt there was something causing his blurry vision, ? PCO. Dr. Carroll saw something in both eyes. Pt also states in OD he sees white discs a few times a day. Usually sees in the evening. Using: Timolol 0.25 % BID OU. 8:30 am Latanoprost HS OU. 10:00 pm Last edited by Renee Vann on 09/22/2023 3:23 PM. No current outpatient medications on file. (Ophthalmic Drugs) No current facility-administered medications for this visit. (Ophthalmic Drugs) Current Outpatient Medications (Other) Medication Sig aspirin 81 mg tablet Adult Aspirin Low Strength 81 MG TBDP 1 tablet daily Refills: 0 Active hlongow-vokibktmj-hpsn 333-133-5 mg tablet Calcium/Magnesium/Zinc TABS TAKE 1 TABLET DAILY. Refills: 0 Active dicyclomine (BENTYL) 10 mg capsule Take 1 capsule (10 mg total) by mouth 4 (four) times a day before meals and nightly. diphenhydrAMINE-acetaminophen (TYLENOL PM) 25-500 mg tablet Take 1 tablet by mouth nightly as needed for sleep. flaxseed oil oil Flaxseed Oil 1200 MG Oral Capsule 1 daily Refills: 0 Active fluticasone propionate (FLONASE) 50 mcg/actuation nasal spray Administer 2 sprays into each nostril in the morning. latanoprost (XALATAN) 0.005 % ophthalmic solution INSTILL ONE DROP TO BOTH EYE EVERY EVENING lisinopriL (PRINIVIL,ZESTRIL) 20 mg tablet TAKE ONE TABLET BY MOUTH EVERY MORNING omeprazole (PriLOSEC) 40 mg capsule TAKE ONE CAPSULE BY MOUTH EVERY MORNING pravastatin (PRAVACHOL) 40 mg tablet Take 1 tablet (40 mg total) by mouth in the morning. tamsulosin (FLOMAX) 0.4 mg capsule TAKE ONE CAPSULE BY MOUTH ONCE NIGHTLY timolol (TIMOPTIC) 0.25 % ophthalmic solution INSTILL ONE DROP TO BOTH EYES TWICE A DAY (MORNING AND BEDTIME) UNABLE TO FIND Take 120 mg by mouth in the morning. Gingko biloba for memory. No current facility-administered medications for this visit. (Other) Mr. Vizcarra has a past medical history of Arthritis, Chronic pain disorder, Epiretinal membrane (ERM) of right eye, Fibromyalgia, primary, GERD (gastroesophageal reflux disease), Hiccups, History of root canal procedure (04/30/2021), HL (hearing loss), Hyperlipidemia, Hypertension, Hypertropia of left eye, Joint pain, Low back pain, Macular pucker, right, NTG, Numbness, PVD (posterior vitreous detachment), both eyes, Rib pain on right side, Sinusitis, chronic, Skin cancer, and Vision problems. He has a past surgical history that includes Back surgery; Cataract extraction w/ intraocular lens implant (Bilateral); Shoulder arthroscopy w/ rotator cuff repair (Right); Shoulder arthroscopy w/ rotator cuff repair (Left); Prostate surgery; Excisional hemorrhoidectomy; Knee arthroscopy (Right); Colon surgery; Other surgical history; Skin biopsy; Vasectomy; Spine surgery; Uroflowmetry (N/A, 08/16/2017); Cystoscopy (N/A, 11/30/2017); Uroflowmetry (N/A, 12/11/2017); Fracture surgery; Tonsillectomy; Injection Nerve Block (Right, 06/25/2018); Injection Nerve Block (Right, 07/13/2018); Injection Nerve Block (Left, 08/06/2018); Injection Nerve Block (Left, 08/20/2018); Injection Nerve Block (Bilateral, 02/15/2019); Radiofrequency ablation (Left, 03/18/2019); Injection Nerve Block (Bilateral, 04/19/2019); Injection Nerve Block (Right, 07/19/2019); Injection Nerve Block (Right, 08/02/2019); Radiofrequency ablation (Right, 08/30/2019); Injection Nerve Block (Right, 02/28/2020); Injection Nerve Block (Right, 04/24/2020); Radiofrequency ablation (Right, 05/29/2020); Injection Nerve Block (Right, 07/10/2020); Injection Steroid (Right, 08/21/2020); Injection Nerve Block (Right, 09/25/2020); Radiofrequency ablation (Right, 10/23/2020); Cystoscopy (N/A, 12/24/2020); Injection Transforaminal (Right, 04/16/2021); Root canal (04/2021); Injection Transforaminal (Right, 05/14/2021); Hernia repair (Left, 07/06/2021); Radiofrequency ablation (Right, 07/16/2021); Injection Transforaminal (Right, 12/10/2021); Carpal tunnel release (Bilateral); Injection Transforaminal (Right, 01/14/2022); Radiofrequency ablation (Right, 02/18/2022); Epidural block injection (N/A, 04/01/2022); Radiofrequency ablation (Right, 06/17/2022); Injection Nerve Block (Right, 08/19/2022); Radiofrequency ablation (Right, 09/30/2022); Injection Nerve Block (Right, 11/18/2022); Epidural block injection (N/A, 12/30/2022); and Injection Transforaminal (Right, 05/26/2023). Base Eye Exam Visual Acuity (Snellen - Linear) Right Left Dist cc 20/40 20/25 Dist ph cc 20/20 Near cc J1+ J1- Pt notes when reading with OS the right half of his vision is blurry at near. Tonometry (Tonopen, 3:43 PM) Right Left Pressure 13 12 Pupils Pupils APD Right PERRL None Left PERRL Neuro/Psych Oriented x3: Yes Mood/Affect: Normal Dilation Both eyes: 1.0% Tropicamide, 2.5% Phenylephrine Hydrochloride @ 3:44 PM Slit Lamp and Fundus Exam External Exam Right Left External Normal Normal Slit Lamp Exam Right Left Lids/Lashes Meibomian gland dysfunction Meibomian gland dysfunction Conjunctiva/Sclera White and quiet White and quiet Cornea Krukenberg's spindle Krukenberg's spindle Anterior Chamber Deep and quiet Deep and quiet Iris Round and dilated Round and dilated Lens PCIOL, TR PCO centrally PCIOL, TR PCO Anterior Vitreous Normal Normal Fundus Exam Right Left Posterior Vitreous Posterior vitreous detachment, no cells Posterior vitreous detachment, no cells Disc Normal Normal C/D Ratio Vertical 0.5 0.6 Macula ERM Normal Vessels Normal Normal Periphery 360* flat and intact without retinal breaks 360* flat and intact without retinal breaks Refraction Wearing Rx Sphere Cylinder Bronte Add Horz Prism Vert Prism Right -5.75 +3.00 153 +2.50 3 MAE 3 BU Left -5.75 +1.25 177 +2.50 3 MAE 1.5 BD Age: 2yrs Type: Trifocal Manifest Refraction (Auto) Sphere Cylinder Bronte Dist VA Add Near VA Right unable Left -4.75 +1.25 135 Manifest Refraction #2 Sphere Cylinder Bronte Dist VA Add Near VA Right -7.00 +3.00 155 20/20 +2.50 J1+ Left -6.00 +1.25 177 20/25 +2.50 J1+ Manifest Refraction Comments Unable to get auto refract on OD. Manifest from wearing OD. Sees shadow with OD individually. No shadow with today's refraction on OD. Scribe Statement: Scribed for and in the presence of CATHERINE FIGUEROA MD by Olga Rae. Provider Statement: I, CATHERINE FIGUEROA MD personally performed the services described in the documentation, as scribed by Olga Rae in my presence, and it is both accurate and complete. Electronically Signed by: Catherine Figueroa MD documented [facility] Note Chief Complaint Patient is being seen for a back consultation. History of Present Illness Patient is a pleasant 82-year-old male with a history of hypertension, fibromyalgia, BPH, osteopenia, remote history of melanoma in situ status post excision in 2007 and 2009, coexisting right knee arthropathy (following with orthopedics: Dr. Garrett), and remote lumbar laminectomy performed in approximately [address] [facility], who presents to the outpatient neurosurgical clinic today as a new patient, at the request of his treating pain management provider, Therese Nelson PA-C, for consultation on behalf of complaints of chronic pain throughout the right gluteal region and right lower extremity. Patient reports a greater than 5-year history of symptoms with progressive worsening such that symptoms have been most problematic in the past 12 months. He describes pain throughout the right superior lumbosacral region and right superior gluteal region. He states pain is constant to some degree, but that he is more comfortable when seated at rest with predictable aggravation in symptoms with standing/walking. Patient states pain is improved with lying supine. He denies radicular pain into the right lower extremity, but does note cramping throughout the right anterior thigh. Patient denies significant axial lumbar pain. He denies left gluteal pain or left lower extremity radicular pain. He denies numbness or paresthesias in the lower extremities outside of chronic numbness in the right foot that he attributes to a previous right knee injection. Patient denies motor weakness in the lower extremities, but does report a sense of heaviness throughout the lower extremities with ambulation. Patient denies bowel/bladder incontinence or saddle paresthesias. He denies significant cervical or thoracic pain. He denies radicular pain into the upper extremities or chest wall/thorax. Patient denies numbness or paresthesias in the upper extremities or chest wall/thorax. He denies motor weakness in the upper extremities, decreased dexterity, or chronic gait imbalance. Patient currently rates his pain at 3/10 when seated at rest with escalation to 8/10 with standing/walking. He states pain generally does not interrupt sleep, but does interrupt activity level. He states he is typically not significantly limited in his ability to ambulate and that function is not typically interrupted. Patient states pain has been refractory to ongoing attempts at long term care phlebotomist and oral medication management. In addition, he has worked extensively with pain management for several years and attempted many injection modalities. Most recently, he underwent a right L3-4 and L4-5 RFA's 06/2022, a right SI injection 11/18/2022, and a caudal epidural injection 12/30/2022 all without significant benefit. PAST MEDICAL HISTORY: Hypertension Hyperlipidemia Fibromyalgia GERD BPH Osteopenia Melanoma in situ status post excision 2007 and 2010 Basal cell carcinoma PAST SURGICAL HISTORY: Lumbar laminectomy, approximately 1956, [facility] left lower extremity Bilateral cataract extraction Right shoulder surgery Right knee arthroscopy TURP x2 Left shoulder surgery Greenlight laser prostate surgery Inguinal herniorrhaphy ALLERGIES: Tramadol: Lightheadedness Neurontin: Dizziness Zanaflex: Dizziness MEDICATIONS: See medication list SOCIAL HISTORY: Patient is . He has 1 living child. He lives independently in [place]. Patient denies nicotine, alcohol, or recreational drugs. 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 He states no [place] of Workmen's Compensation or third-green party insurance claims based on today's office visit. FAMILY HISTORY: CAD: Father Cancer: Mother with lung cancer Review of Systems Constitutional: [No fevers, chills, sweats] Eye: [No recent visual problems] ENT: [No ear pain, sore throat, nasal congestion] Respiratory: [No shortness of breath, cough] Vascular: [No edema, erythema, discoloration] Cardiovascular: [No Chest pain, palpitations, syncope] Neuro: [No headaches, dizziness] Gastrointestinal: [No nausea, vomiting, diarrhea] Genitourinary: [No hematuria] Endocrine: [no polydipsia, polyphagia] Hematology: [no easy bruising, no bleeding tendencies] Physical Exam Vitals & Measurements HR: 56 (Peripheral) BP: 130/67 HT: 178 cm WT: 90 kg WT: 90 kg (Dosing) BMI: 28.41 Additional Vitals BP Position/Location: Sitting, Right arm GENERAL PHYSICAL EXAM: GENERAL: well developed, well nourished, no distress HEAD: normocephalic, atraumatic EYES: anicteric, atraumatic MUCOUS MEMBRANES: Moist, no evidence of dehydration NECK: supple, full range of motion, no deformity noted; no cervical adenopathy; no carotid bruits; no tracheal deviation; no winging of the scapula; no drooping of the shoulder; no evidence of neurotension signs such as Lhermitte's or Spurling sign CHEST: clear CARDIAC: normal heart sounds no murm (more content not included)... [facility] 12-01-2022 Note Chief Complaint EGD/ Colon procedure follow up. History of Present Illness Patient presents to GI for f/u of EGD/CY that was done for abd pain, diffuse and more flank area. d/w him findings, see below. d/ whim option of trial low fodmap diet and checking for kidney stones. admits GERD is improved with PPI. unable to tolerate caffein without any type of GERD rebound Denies hematochezia, melena or hematemesis. has a daily stool, type 5 on BSFS. no fever/chills. egd 10/19/2022 Impression and Plan EGD: Diagnosis: Gastric erythema ([id number]-GU K31.9, Discharge, Medical), Gastric polyp (WCG99-EP K31.7, Discharge, Medical), Irregular Z line of esophagus ([id number]-YW K22.9, Discharge, Medical). Orders: Pathology reports to be followed. Continue PPI Avoid NSAIDs. Lifestyle modifications including HOB elevation, allowing at least 1-3 hours after eating before lying down, avoiding alcohol and avoiding smoking. Return to GI clinic per schedule. cy 10/19/2022 Impression and Plan Colonoscopy: Diagnosis: Colon polyps ([id number]-VY K63.5, Discharge, Medical), Diverticula, colon ([id number]-GZ K57.30, Discharge, Medical), Internal hemorrhoids ([id number]-QQ K64.8, Discharge, Medical). Orders: Pathology reports to be followed. High fiber diet, adequate PO hydration Return to GI clinic per schedule.. Education and Follow-up: Counseled: Patient, Family. Recommended repeat colonoscopy: Await pathology results. pathology 10/19/2022 Part A: Gastric polyp, biopsy:Fundic gland polyps. Part B: Gastric erythematous area, biopsy:Essentially unremarkable gastric mucosa. Part C: Irregular z line, biopsy:Benign, reactive squamous mucosa.Inflamed glandular mucosa negative for intestinal metaplasia. Part D: Cecal polyp, biopsy:Fragments of tubular adenoma. Part E: Descending colon polyp, biopsy:Mixed tubular adenoma and hyperplastic polyp. Part F: Transverse colon polyp, biopsy:Fragments of tubular adenoma. last CY done 2016, tubular adenoma, done with DY, see scanned in documents. CTAP done 08/2022: no intraabdominal findings PCP: Chanell Review of Systems Constitutional: No fevers, chills, sweats Eye: No recent visual problems ENMT: No ear pain, nasal congestion, sore throat Respiratory: No shortness of breath, cough Cardiovascular: No Chest pain, palpitations, syncope Gastrointestinal: No nausea, vomiting, diarrhea Genitourinary: No hematuria, no urgency/frequency Lymph: Negative for bruising tendency, swollen lymph glands Endocrine: Negative for excessive thirst, excessive hunger Musculoskeletal: No back pain, neck pain, joint pain, muscle pain, decreased range of motion Integumentary: No rash, pruritus, abrasions Neurologic: Alert & oriented X [address], [address], time and situation Psychiatric: No anxiety, depression Physical Exam Vitals & Measurements HR: 68 (Peripheral) BP: 115/65 SpO2: 96 HT: 178 cm WT: 92.9 kg WT: 92.9 kg (Dosing) BMI: 29.32 General: Alert and oriented, well nourished, no acute distress. Eye: PERRL, EOMI, normal conjunctiva. HENT: Normocephalic, clear tympanic membranes, normal hearing, moist oral mucosa, no scleral icterus, no sinus tenderness Neck: Supple, non-tender, no carotid bruits, no JVD, no lymphadenopathy. Lungs: Clear to auscultation and percussion, non-labored respiration. Heart: Normal rate, regular rhythm, no murmur, gallop or edema. Abdomen: Soft, bilateral intermittent flank pain, non-distended, normal bowel sounds, no masses. Musculoskeletal: Normal range of motion and strength, no tenderness or swelling. Skin: Skin is warm, dry and pink, no rashes or lesions. Neurologic: Awake, alert, and oriented X3 Psychiatric: Cooperative, appropriate mood and affect. Additional Vitals BP Position/Location: Sitting, Left arm Assessment/Plan Orders: dicyclomine, 1 caps, Oral, QID, PRN, # 40 caps, 0 Refill(s), Pharmacy: [facility] [phone] US Renal and Bladder 1. Flank pain - check US renal/bladder to r/o kidnye stone - EGD/CY stable - advise adequate water intake 2. GERD - stable on PPI, attempt to wean to lowest dose poss, noted gastritis and gastric polyp - enc. weight loss, avoid supine position for 3 hours after meals - avoid foods that decrease LES pressure, avoid overeating, avoid alcohol, nsaid, nicotine use. 3. Tubular adenoma - repeat CY in 3 years pending clinical picture given advanced age Medical Decision Making Chronic conditions NOT treated during this visit that affected my overall medical decision making: [] Treatment plans discussed but not opted for at this time: [] Prescribed medication that requires intensive monitoring for toxicity: [] I have reviewed the patient?s medication list for medication interactions/contraindications and/or for upcoming procedures: [yes or no] Time Spent with the Patient I have personally spent [31] minutes on this date, directly related to today's patient visit, including pre and post visit work, for this (more content not included)... [facility] 10-19-2022 Note Clinical Information Procedure: EGD, Colonoscopy Pre-operative diagnosis: GERD , LLQ pain SP Specimen A Gastric polyp B Gastric erythema biopsies C Irregular z line biopsies D Cecal polyp E Descending colon polyp F Transverse colon polyp Gross Description Part A: Received in formalin labeled 'gastric polyp' are two pieces of light morin tissue measuring 0.1 and 0.8 cm in greatest dimension. The larger piece of tissue is bisected and entirely submitted in cassette A1. The smaller piece of tissue is entirely submitted intact in cassette A2. Part B: Received in formalin labeled 'gastric erythema biopsies' are two pieces of light morin tissue measuring 0.3 and 0.4 cm in greatest dimension. The specimen is entirely submitted in cassette B1. Part C: Received in formalin labeled 'irregular z-line biopsies' are two pieces of light morin tissue measuring 0.2 and 0.3 cm in greatest dimension. The specimen is entirely submitted in cassette C1. Part D: Received in formalin labeled 'cecal polyp' are two pieces of light morin tissue measuring 0.2 and 0.3 cm in greatest dimension. The specimen is entirely submitted in cassette D1. Part E: Received in formalin labeled 'descending colon polyp' are two pieces of light morin tissue measuring 0.3 and 0.5 cm in greatest dimension. The specimen is entirely submitted in cassette E1. Part F: Received in formalin labeled 'transverse colon polyp' are two pieces of light morin tissue measuring 0.3 and 0.4 cm in greatest dimension. The specimen is entirely submitted in cassette F1. Microscopic Description Part A: Slides are reviewed. Part B: Sections show gastric oxyntic mucosa which is reviewed at multiple levels on initial H&E stained sections. There is some cystic dilatation of the oxyntic glands in a pattern suggesting effect of PPI medication. Significant increased inflammation is not seen in the lamina propria. No Helicobacter-like organisms are identified on H&E stained sections. There is no active inflammation, granuloma, intestinal metaplasia, or evidence of malignancy. Part C: Sections show pieces of both glandular and squamous mucosa that are reviewed at multiple levels. The squamous mucosa has some reactive features but increased intraepithelial eosinophils are not evident. The glandular mucosa has some associated inflammation, but there is no specialized intestinal metaplasia with goblet cells/goblet cell metaplasia, glandular dysplasia or evidence of malignancy. Parts D/E/F: Sections show tubular adenoma which is negative for high grade glandular dysplasia or malignancy. In part E, there is also an area of hyperplastic polyp. Diagnosis Part A: Gastric polyp, biopsy: Fundic gland polyps. Part B: Gastric erythematous area, biopsy: Essentially unremarkable gastric mucosa. Please read microscopic description. Part C: Irregular z line, biopsy: Benign, reactive squamous mucosa. Inflamed glandular mucosa negative for intestinal metaplasia. Part D: Cecal polyp, biopsy: Fragments of tubular adenoma. Part E: Descending colon polyp, biopsy: Mixed tubular adenoma and hyperplastic polyp. Part F: Transverse colon polyp, biopsy: Fragments of tubular adenoma. [id number] Magaly Murray MD PhD (Electronically signed by) Verified: 10/24/22 13:45 [facility] Comment on above: Performed By: #### P TT #### [place] [address] 12-17-2021 History of Presen t illness Narrative Discharge Criteria Outpatients must meet criteria 1 through 7. Up to restroom, void sufficient amount. Yes 1. Minimum 30 minutes after last dose of sedative medication, minimum 120 minutes after last dose of reversal agent. Yes 2. Systolic BP stable within 20 mmHg for 30 minutes & systolic BP between 90 & 180 or within 10 mmHg of baseline. Yes 3. Pulse between 60 and 100 or within 10 bpm of baseline. Yes 4. Spontaneous respiratory rate >/= 10 per minute. Yes 5. SaO2 >/= 95 or >/= baseline. Yes 6. Able to cough and swallow or return to baseline function. Yes 7. Alert and oriented or return to baseline mental status. Yes 8. Demonstrates controlled, coordinated movements, ambulates with steady gait, or return to baseline activity function. Yes 9. Minimal or no pain or nausea, or at a level tolerable and acceptable to patient. Yes 10. Takes and retains oral fluids as allowed. Yes 11. Procedural / perioperative site stable. Minimal or no bleeding. Yes 12. If GI endoscopy procedure, minimal or no abdominal distention or passing flatus. Yes 13. Written discharge instructions and emergency telephone number provided. Yes 14. Accompanied by a responsible adult. Yes Adult patient discharged from facility without responsible person meets above criteria plus the following: a) remains awake without stimulus for 30 minutes b) oriented appropriate for age c) all vital signs stable d) no significant risk of losing protective reflexes e) able to maintain pre-procedure mobility without assistance f) no nausea or dizziness g) transportation arrangements that do not require patient to operate motor Vehicle. Yes [facility] Preadmission Testing Name: Vinayak Vizcarra : 1940 Patient (home) Procedure: Left Carpal Tunnel Release Date of Procedure: 12/17/2021 Surgeon: Akhil Awan MD Ht: 5' 10 (177.8 cm) Wt: 200 lb (90.7 kg) Wt method: Stated Allergies: Allergies Allergen Reactions Gabapentin Dizziness or Vertigo Tramadol Dizziness or Vertigo There were no vitals filed for this visit. No LMP for male patient. Do you take blood thinners? [x] Yes [] No Instructed to stop blood thinners prior to procedure? [x] Yes [] No [] N/A Do you have sleep apnea? [] Yes [x] No Do you have acid reflux ? [x] Yes [] No Do you have hiatal hernia? [] Yes [x] No Do you ever experience motion sickness? [x] Yes [] No Have you had a respiratory infection or sore throat in last 4 weeks before surgery? [] Yes [x] No Do you have poorly controlled asthma or COPD? Difficulty with intubation in past? [] Yes [x] No [] Yes [x] No Do you have a history of angina in the last month or symptomatic arrhythmia? [] Yes [x] No Do you have significant central nervous system disease? [] Yes [x] No Have you had an EKG, labs, or chest xray in last 12 months? If yes provide copies to anesthesia [x] Yes [] No [] Lab [x] EKG [] CXR Outside EKG Have you had a stress test? [] Yes [x] No When/where: Was it normal? [] Yes [] No Do you or your family have a history of Malignant Hyperthermia? [] Yes [x] No Do you smoke? [] Yes [x] No Please refrain from smoking on the day of surgery. Patient instructed on: [x] NPO Status [x] Meds to Take [x] Ride Home [x]No Jewelry/Contact Lenses/Nail Danish [] Prep/Lax/Clear Liquids [] Chlorhexidene DOS Patient Needs [] HCG [] Blood Sugar [] PT/INR [] T&S COVID Vaccinated? [] Yes [x] No PAT Call/Visit Questions Person Interviewed: Vinayak Relationship to Patient: Patient Patient instructed on the pre-operative, intra-operative, and post-operative process? Yes Medication instructions reviewed with patient? Yes documented in this encounter [facility] Phone: 12-17-2021 Hospital Discharg e instructions Akhil Awan MD - 12/17/2021 SAME DAY SURGERY INSTRUCTIONS 1. Do not drive or operate hazardous machinery. 2. Do not make important personal or business decisions for 24 hours. 3. Do not drink alcoholic beverages. 4. Do not smoke tobacco products. 5. Eat light foods initially (i.e., Jell-O, soups, etc) and drink plenty of fluids. 6. If your bandages become soaked with a bright red blood, place another dressing pad over your bandages. (Do not remove original bandage.) Call your surgeon for further instructions. A small amount of bright red blood is to be expected. 7. Limit your activities for 48 hours. Do not engage in heavy work until your surgeon gives you permission. 8. Report the following signs or any questions regarding your physical condition to your surgeon immediately: Excessive swelling of, or around, the wound area Redness Temperature of 101 (degrees F) or above Excessive pain 9. Call your surgeon, , for any questions regarding your surgery. Call [phone] for urgent questions after 5PM until 8AM 10. Call for an appointment to see your surgeon in 2 weeks. SPECIAL INSTRUCTIONS AND MEDICATIONS 1. No firm gripping, pushing, pulling, lifting more than several pounds for at least 2 weeks. 2. Move fingers and wrist to improve circulation. Work on restoring full finger range of motion. At your 2 week follow up appointment you should be able to make a complete fist. 3. Use prescribed pain pill as directed by the doctor. You may use Tylenol if you prefer. 4. Keep your dressing on an dry unless instructed differently by your physician. 5. Use ice as instructed. 6. Remove operative bandages: 12/19. Place a band aid over incision or cover with new gauze and daniel wrap 7. Keep incisions/dressings dry. If they happen to get wet remove wet dressing and place a new dry dressing. Akhil Awan MD 12/17/2021 12:19 PM documented in this encounter [facility] Phone: 12-03-2021 History of Presen t illness Narrative Discharge Criteria Outpatients must meet criteria 1 through 7. Up to restroom, void sufficient amount. Yes 1. Minimum 30 minutes after last dose of sedative medication, minimum 120 minutes after last dose of reversal agent. Yes 2. Systolic BP stable within 20 mmHg for 30 minutes & systolic BP between 90 & 180 or within 10 mmHg of baseline. Yes 3. Pulse between 60 and 100 or within 10 bpm of baseline. Yes 4. Spontaneous respiratory rate >/= 10 per minute. Yes 5. SaO2 >/= 95 or >/= baseline. Yes 6. Able to cough and swallow or return to baseline function. Yes 7. Alert and oriented or return to baseline mental status. Yes 8. Demonstrates controlled, coordinated movements, ambulates with steady gait, or return to baseline activity function. Yes 9. Minimal or no pain or nausea, or at a level tolerable and acceptable to patient. Yes 10. Takes and retains oral fluids as allowed. Yes 11. Procedural / perioperative site stable. Minimal or no bleeding. Yes 12. If GI endoscopy procedure, minimal or no abdominal distention or passing flatus. Yes 13. Written discharge instructions and emergency telephone number provided. Yes 14. Accompanied by a responsible adult. Yes Adult patient discharged from facility without responsible person meets above criteria plus the following: a) remains awake without stimulus for 30 minutes b) oriented appropriate for age c) all vital signs stable d) no significant risk of losing protective reflexes e) able to maintain pre-procedure mobility without assistance f) no nausea or dizziness g) transportation arrangements that do not require patient to operate motor Vehicle. Yes [facility] Preadmission Testing Name: Vinayak Vizcarra : 1940 Patient (home) Procedure: RIGHT CARPAL TUNNEL RELEASE ENDOSCOPIC - Right Date of Procedure: 12/03/21 Surgeon: Akhil Awan MD Ht: 5' 10 (177.8 cm) Wt: 200 lb (90.7 kg) Wt method: Allergies: Allergies Allergen Reactions Gabapentin Dizziness or Vertigo Tramadol Dizziness or Vertigo There were no vitals filed for this visit. No LMP for male patient. Do you take blood thinners? [x] Yes [] No Instructed to stop blood thinners prior to procedure? [x] Yes [] No [] N/A Do you have sleep apnea? [] Yes [x] No Do you have acid reflux ? [x] Yes [] No Do you have hiatal hernia? [] Yes [x] No Do you ever experience motion sickness? [x] Yes [] No Have you had a respiratory infection or sore throat in last 4 weeks before surgery? [] Yes [x] No Do you have poorly controlled asthma or COPD? Difficulty with intubation in past? [] Yes [x] No [] Yes [] No Do you have a history of angina in the last month or symptomatic arrhythmia? [] Yes [x] No Do you have significant central nervous system disease? [] Yes [x] No Have you had an EKG, labs, or chest xray in last 12 months? If yes provide copies to anesthesia [] Yes [x] No [] Lab [] EKG [] CXR Have you had a stress test? [] Yes [x] No When/where: Was it normal? [] Yes [] No Do you or your family have a history of Malignant Hyperthermia? [] Yes [x] No Do you smoke? [] Yes [x] No Please refrain from smoking on the day of surgery. Patient instructed on: [x] NPO Status [x] Meds to Take [x] Ride Home [x]No Jewelry/Contact Lenses/Nail Danish [] Prep/Lax/Clear Liquids [] Chlorhexidene DOS Patient Needs [] HCG [] Blood Sugar [] PT/INR [] T&S COVID Vaccinated? [] Yes [x] No Patient instructed on the pre-operative, intra-operative, and post-operative process? Yes Medication instructions reviewed with patient? Yes documented in this encounter [facility] Phone: Evaluation note Diagnosis S/P endoscopic carpal tunnel release- Primary Other postprocedural status documented in this encounter [facility] Phone: evaluation note* Diagnosis Low-tension glaucoma of both eyes, mild stage [facility] Diagnosis PCO (posterior capsular opacification), bilateral- Primary Unspecified after-cataract Pseudophakia of both eyes Lens replaced by other means Low-tension glaucoma of both eyes, mild stage Epiretinal membrane (ERM) of right eye [facility] Instructions* Akhil Awan MD - 12/03/2021 SAME DAY SURGERY INSTRUCTIONS 1. Do not drive or operate hazardous machinery. 2. Do not make important personal or business decisions for 24 hours. 3. Do not drink alcoholic beverages. 4. Do not smoke tobacco products. 5. Eat light foods initially (i.e., Jell-O, soups, etc) and drink plenty of fluids. 6. If your bandages become soaked with a bright red blood, place another dressing pad over your bandages. (Do not remove original bandage.) Call your surgeon for further instructions. A small amount of bright red blood is to be expected. 7. Limit your activities for 48 hours. Do not engage in heavy work until your surgeon gives you permission. 8. Report the following signs or any questions regarding your physical condition to your surgeon immediately: Excessive swelling of, or around, the wound area Redness Temperature of 101 (degrees F) or above Excessive pain 9. Call your surgeon, , for any questions regarding your surgery. Call [phone] forurgent questions after 5PM until 8AM 10. Call for an appointment to see your surgeon in 2 weeks unless scheduled for surgery in 2 weeks at which time sutures will be removed SPECIAL INSTRUCTIONS AND MEDICATIONS 1. No firm gripping, pushing, pulling, lifting more than several pounds for at least 2 weeks. 2. Move fingers and wrist to improve circulation. Work on restoring full finger range of motion. Atyour 2 week follow up appointment you should be able to make a complete fist. 3. Use prescribed pain pill as directed by the doctor. You may use aspirin or Tylenol if you prefer. 4. Keep your dressing on an dry unless instructed differently by your physician. 5. Use ice as instructed. 6. Remove operative bandages: 12/05. Place a band aid over incision or cover with new gauze and daniel wrap 7. Keep incisions/dressings dry. If they happen to get wet remove wet dressing and place a new dry dressing. Akhil Awan MD 12/03/2021 12:38 PM [facility] Work Phone: InstructionsNot on filedocumented in this encounter [facility] SystemInstructions* Attachments The following attachments cannot be sent through Care Everywhere. * How to Use Eye Drops (Gabonese) documented in this encounterProSt. [facility] HospitalReason for visit Narrative* Auth/Cert Specialty Diagnoses / Procedures Referred By Elly maldonado Referred To Contact Diagnoses Right carpal tunnel syndrome RIGHT CARPAL TUNNEL SYNDROME Procedures AK WRIST ARTHROSCOP,RELEASE XVERS LIG RIGHT CARPAL TUNNEL RELEASE ENDOSCOPIC Akhil Awan MD [address] [place] [address] [facility] [employer] [id number] [place] [id number] Referral ID Status Reason Start Date Expiration Date Visits Re quested Visits Authorized 1 1 [facility] Phone: reason for visit Narrative* Auth/Cert Specialty Diagnoses / Procedures Referred By Elly maldonado Referred To Contact Diagnoses Left carpal tunnel syndrome LEFT CARPAL TUNNEL SUNDROME Procedures AK WRIST ARTHROSCOP,RELEASE XVERS LIG LEFT CARPAL TUNNEL RELEASE ENDOSCOPIC Akhil Awan MD [address] [place] [address] [facility] 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 8 tablet 0 12/03/2021 12/10/2021 Scheduled Active and Recently Administ ered Medications (unrecognized section and content) Medication Order 12/01/2021 12/02/2021 12/03/2021 ceFAZolin (ANCEF) 2000 mg in dextrose 3 % 50 mL IVPB (duplex) (COMPLETED) 2,000 mg, IntraVENous, TEMPERATURE LOGGING OPERATOR TO O.R., 1 dose, On Mon12/03/21 at 1130, Antimicrobial Indications: Surgical Prophylaxis, Administer within 1 hour prior to incision. Recommend to repeat in 3-4 hours after initial dose if still intra-op., Pre-op (day of surgery) 1153 (New Bag - Prov ider: Viola Rushing RN)1223 (Stopped - Provider: Jazmin Rodriguez RN) sodium chloride flush 0.9 % injection 5-40 mL 5-40 mL, IntraVENous, EVERY 12 HOURS SCHEDULED (2 times per day), First dose on Mon12/03/21 at 1130, Until Discontinued, For Line Patency: Peripheral IV = 5 mL; Midline or Central Line = 10 mL/lumen. If following IV push medication, administer flush at same rate as the IV push. Flush volume is determined by type of infusion therapy being given. For non-viscous solutions use: Peripheral IV = 5 mL Midline or Central Line = 10 mL/lumen For viscous solutions (i.e. blood components, parenteral nutrition, contrast media, or after obtaining blood sample) use: Peripheral IV = 10 mL Midline or Central Line = 20 mL/lumen, Pre-op (day of surgery) 1130 (Due)2100 (Due) Continuous Medication Order 12/01/2021 12/02/2021 12/03/2021 lactated ringers infusion IntraVENous, at 125 mL/hr, CONTINUOUS, Starting on Mon12/03/21 at 1130, Pre-op (day of surgery) 1146 (New Bag - Prov ider: Viola Rushing RN)1208 (NoRateChange - Provider: KAMI Montoya CRNA)1233 (Anesthesia Volume Adjustment - Provider: KAMI Montoya CRNA) PRN Medication Order 12/01/2021 12/02/2021 12/03/2021 0.9 % sodium chloride infusion 25 mL, IntraVENous, at 100 mL/hr, PRN, If patient receiving piggyback infusions without ordered maintenance IV fluids or with frequent/long duration piggyback infusions, Starting on Mon12/03/21 at 1113, Administer at the same rate as the piggyback being infused., Pre-op (day of surgery) bupivacaine (PF) (MARCAINE) 0.5 % injection (CANCELED) PRN, Starting on Mon12/03/21 at 1242, Until Mon12/03/21 at 1341, Intra-op 1242 (Given - Provid er: Akhil Awan MD - Comment: used 5mls mixed 1:1 with Xylociane 1%) lidocaine-EPINEPHrine 1 %-1:426613 injection (CANCELED) PRN, Starting on Mon12/03/21 at 1243, Until Mon12/03/21 at 1341, Intra-op 1243 (Given - Provid er: Akhil Awan MD - Comment: used 5mls mixed 1:1 with Marcaine 0.5%) sodium chloride 0.9 % irrigation (COMPLETED) CONTINUOUS PRN, Starting on Mon12/03/21 at 1243, Intra-op 1243 (New Bag - Prov ider: Akhil Awan MD - Comment: poured onto sterile field) sodium chloride flush 0.9 % injection 5-40 mL 5-40 mL, IntraVENous, PRN, Starting on Mon12/03/21 at 1113, Until Discontinued, Line Care, For Line Patency: Peripheral IV = 5 mL; Midline or Central Line = 10 mL/lumen. If following IV push medication, administer flush at same rate as the IV push. Flush volume is determined by type of infusion therapy being given. For non-viscous solutions use: Peripheral IV = 5 mL Midline or Central Line = 10 mL/lumen For viscous solutions (i.e. blood components, parenteral nutrition, contrast media, or after obtaining blood sample) use: Peripheral IV = 10 mL Midline or Central Line = 20 mL/lumen, Pre-op (day of surgery) Scheduled Medication Order 12/15/2021 12/16/2021 12/17/2021 ceFAZolin (ANCEF) 2000 mg in dextrose 3 % 50 mL IVPB (duplex) (COMPLETED) 2,000 mg, IntraVENous, TEMPERATURE LOGGING OPERATOR TO O.R., 1 dose, On Mon12/17/21 at 1145, Antimicrobial Indications: Surgical Prophylaxis, Administer within 1 hour prior to incision. Recommend to repeat in 3-4 hours after initial dose if still intra-op., Pre-op (day of surgery) 1231 (New Bag - Prov ider: Michael Bashir, RN)1301 (Due: Stopped - Provider: Michael Bashir RN) sodium chloride flush 0.9 % injection 5-40 mL 5-40 mL, IntraVENous, EVERY 12 HOURS SCHEDULED (2 times per day), First dose on Mon12/17/21 at 1145, Until Discontinued, For Line Patency: Peripheral IV = 5 mL; Midline or Central Line = 10 mL/lumen. If following IV push medication, administer flush at same rate as the IV push. Flush volume is determined by type of infusion therapy being given. For non-viscous solutions use: Peripheral IV = 5 mL Midline or Central Line = 10 mL/lumen For viscous solutions (i.e. blood components, parenteral nutrition, contrast media, or after obtaining blood sample) use: Peripheral IV = 10 mL Midline or Central Line = 20 mL/lumen, Pre-op (day of surgery) 1145 (Due)2100 (Due) Continuous Medication Order 12/15/2021 12/16/2021 12/17/2021 lactated ringers infusion IntraVENous, at 125 mL/hr, CONTINUOUS, Starting on Mon12/17/21 at 1145, Pre-op (day of surgery) 1217 (New Bag - Prov ider: Wiliam Warner APRN - COREY)1217 (NoRateChange - Provider: KAMI Montoya CRNA)1252 (Stopped - Provider: KAMI Montoya CRNA) PRN Medication Order 12/15/2021 12/16/2021 12/17/2021 0.9 % sodium chloride infusion 25 mL, IntraVENous, at 100 mL/hr, PRN, If patient receiving piggyback infusions without ordered maintenance IV fluids or with frequent/long duration piggyback infusions, Starting on Mon12/17/21 at 1122, Administer at the same rate as the piggyback being infused., Pre-op (day of surgery) bupivacaine (PF) (MARCAINE) 0.5 % injection (CANCELED) PRN, Starting on Mon12/17/21 at 1239, Until Mon12/17/21 at 1419, Intra-op 1239 (Given - Provid er: Akhil Awan MD - Comment: 5mL of Marcaine given up to field. Mixed 1;1 with Lidocaine 1% with epi.) lidocaine-EPINEPHrine 1 %-1:287544 injection (CANCELED) PRN, Starting on Mon12/17/21 at 1240, Until Mon12/17/21 at 1419, Intra-op 1240 (Given - Provid er: Akhil Awan MD - Comment: 5mL given up to field. Mixed 1;1 with Marcaine.) sodium chloride 0.9 % irrigation (COMPLETED) CONTINUOUS PRN, Starting on Mon12/17/21 at 1250, Intra-op 1250 (New Bag - Prov ider: Akhil Awan MD - Comment: Poured onto sterile field. Used as irrigation) sodium chloride flush 0.9 % injection 5-40 mL 5-40 mL, IntraVENous, PRN, Starting on Mon12/17/21 at 1122, Until Discontinued, Line Care, For Line Patency: Peripheral IV = 5 mL; Midline or Central Line = 10 mL/lumen. If following IV push medication, administer flush at same rate as the IV push. Flush volume is determined by type of infusion therapy being given. For non-viscous solutions use: Peripheral IV = 5 mL Midline or Central Line = 10 mL/lumen For viscous solutions (i.e. blood components, parenteral nutrition, contrast media, or after obtaining blood sample) use: Peripheral IV = 10 mL Midline or Central Line = 20 mL/lumen, Pre-op (day of surgery) (unrecognized sect ion and content) No Status Records FoundNo Status Records FoundNo Status Records FoundNo Status Records Found INFORMATION SOURCE (unrecogn ized section and content) DATE CREATED AUTHOR 02/05/2022 Rachel [facility]ital DATE CREATED AUTHOR AUTHOR'S ORGANIZ ATION 08/13/2022 Rachel magallanes DATE CREATED AUTHOR AUTHOR'S ORGANIZ ATION 09/23/2023 [facility] DATE CREATED AUTHOR AUTHOR'S ORGANIZ ATION 09/24/2023 [facility] Reason for Visit (unrecogniz ed section and content) Reason Comments Med Refill Reason Comments Blurred Vision Specialty Diagnoses / Procedures Referred By Contac t Referred To Contact Optometry / Ophthalmology Diagnoses Diplopia Pernell Carroll W, OD [address] [place] [address] Jerry Sanchez, OD [address] [place] [address] Referral ID Status Reason Start Date Expiration Date Visits Requested Visits Authorized [id number] Pending Review Specialty Services Required 3 08/27/2024 1 1 Care Teams (unrecognized sec tion and content) Carding Machine Feeder Relationship Specialty Start Date End Date Nelson Lua APRN-CNP [address] [address] PCP - General Family Medicine 05/03/21 Carding Machine Feeder Relationship Specialty Start Date End Date Nelson Lua APRN-CNP [address] [address] PCP - General Family Medicine 05/03/21 FOR RECORDS PERTAINING TO PATIENTS WHO ARE OR HAVE BEEN ENROLLED IN A CHEMICAL DEPENDENCY/SUBSTANCEABUSE PROGRAM, SOME INFORMATION MAY BE OMITTED. This clinical summary was aggregated from multiple sources. Caution should be exercised in using it in the provision of clinical care. This summary normalizes information from multiple sources, and as a consequence, information in this document may materially change the coding, format and clinical context of patient data. In addition, data may be omitted in some cases. CLINICAL DECISIONS SHOULD BE BASED ON THE PRIMARY CLINICAL RECORDS. [facility] [employer] [facility]. provides no warranty or guarantee of the accuracy or completeness of information in this document.
[2023-09-25] MEDS: LACTATED RINGER'S SOLUTION 1,000 ML 50 ML IV (12:17)
[2023-09-25] MEDS: CEFAZOLIN SODIUM/DEXTROSE,ISO 2 GM/50 ML PIGGYBACK IV (13:04)
[2023-09-25] MEDS: LIDOCAINE HCL 1%-EPINEPHRINE 1:100,000 10 ML MDV 3 ML INJ (13:08)
[2023-09-25] MEDS: BUPIVACAINE HCL 0.5% PF 50 MG/10 ML VIAL 3 ML INJ (13:09)
--- NOTE | 2023-09-25 13:49 | PM.ORPRC ---
Procedure Note Date of procedure: 09/25/23 Pre-op diagnosis: Left trigger finger Post-op diagnosis: same as pre-op Procedure: Preoperative Diagnosis: Left t trigger finger Postoperative Diagnosis: Same Operative Procedure: Left long trigger finger release Surgeon: Catalino Swanson MD Anesthesia: Local Estimated Blood Loss: Minimal Tourniquet Time: None Complications: None Indications for surgery: The patient has had painful triggering in the above noted fingers/fingers. Treatment options were discussed with the patient as well as risks and benefits and they have elected to proceed with the above surgery. Operative Procedure: After informed consent was obtained the patient was brought to the operating room and placed in the supine position. Preoperatively they received intravenous antibiotics and local anesthetic infiltrated over the A1 honorio of the left long finger. 3 mL 1% lidocaine with epinephrine combined with 3 mL half percent Marcaine plain was utilized. The arm was prepped and draped in the usual sterile fashion. . A 1 cm incision was made in a preexisting longitudinal crease overlying the A1 honorio of the left long finger. Blunt dissection was carried down to the A1 honorio. The honorio was then incised from distal to proximal. Complete release was performed. The underlying tendon was visualized and found to be normal. The patient then flexed the digit and the triggering had resolved. The wound was irrigated and closed with a nylon suture. A sterile dressing was placed. The patient was then brought to the recovery room. There were no intraoperative or postoperative complications. Anesthesia: local Surgeon: Matt Swanson Estimated blood loss (mL): 1 Pathology: none sent Condition: stable Disposition: PACU
--- NOTE | 2023-09-25 13:54 | PC.NURSE ---
Patient ended up being a local and not a MAC anesthesia patient.
== END 2023-09-25 13:53 | disposition home or self-care (01) ==
PROVIDERS: Visit Provider Orthopaedic Surgery
PROC: (CPT 26055; principal; 2023-09-25 13:00)
DX: M65.332 Trigger finger, left middle finger (principal); N40.0 Benign prostatic hyperplasia without lower urinary tract symptoms; K21.9 Gastro-esophageal reflux disease without esophagitis; E78.00 Pure hypercholesterolemia, unspecified; Z87.891 Personal history of nicotine dependence; Z79.82 Long term (current) use of aspirin
CPT/HCPCS: 26055; J0665; J0690